=== PATIENT | male | born 1955 | race Caucasian/White ===

== ENCOUNTER 2023-10-19 13:59 | Outpatient (AMB) | payer MEDICARE, OTHER, SELFPAY ==
--- NOTE | 2023-10-19 14:03 | A.OFFVIS_ITS ---
Vital Signs 10/19/23 14:19 Height 5 ft 7 in Weight 169 lb 6 oz BMI 26.5 BP 122/80 Blood Pressure Location Lt brachial Position Sitting Pulse 74 Pulse Source Pulse Oximeter Pulse Oximetry (%) 99 Oxygen Delivery Method Room Air Intake Visit Reasons: ENP: Worsening Tremor - Confirmed Intake Note: Patient presents for worsening tremors. Allergies haloperidol [From Haldol] Allergy (Verified 10/19/23 14:11) Unknown tizanidine Allergy (Verified 10/19/23 14:11) Unknown Medication List - Last Reconciled 10/19/23 by Isabela Myers MD acetaminophen 1,000 mg PO Q6H PRN allopurinol 100 mg PO DAILY clonazepam mg PO ferrous sulfate (Iron (ferrous sulfate)) 325 mg PO QAM levothyroxine mcg PO mycophenolate sodium 360 mg PO BID omega-3 fatty acids 1,000 mg PO DAILY pantoprazole 40 mg PO BID quetiapine 100 mg PO BEDTIME tacrolimus XR (Envarsus XR) 2 mg PO DAILY tamsulosin 0.8 mg PO DAILY HPI Comments Details: 68y/o left handed male comes for evaluation of tremors . He started noticing tremors in his left hand about 6 mths ago . it was mild and intermittent initially but its more now. The tremors is mostly at rest. No difficulty with left hand coordination Handwriting is smaller No trouble with using utensils, eating, dressing. He also has lumbar spinal stenosis and had surgery 1 year ago . He has persistent back pain and is getting cortisone shots. He has trouble getting up form chair balance and also feels he shuffles. He feels his left foot is stuck No falls but had some near [place]. His voice is softer. He has mild memory issues He is a light sleeper. He has anxiety and takes clonazepam . He has constipation. 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 He has h/o Bipolar disorder and has been exposed to risperdal, haldol for few years and now is on quetiapine. [facility] Medical History (Updated 10/19/23 @ 14:47 by Isabela Myers MD) Parkinson's disease without dyskinesia Subacromial bursitis of left shoulder joint Hypothyroidism Hyperlipidemia History of testicular cancer Gout GERD (gastroesophageal reflux disease) CKD (chronic kidney disease), stage IV BPH (benign prostatic hyperplasia) Bipolar disorder Surgical History Kidney transplanted Previous back surgery Living unrelated donor renal transplant History of orchiectomy H/O esophagogastroduodenoscopy H/O colonoscopy Family History Father History of heart attack Mother Suicide Sister Bipolar 2 disorder Physical Exam Vital Signs: Last Vital Signs Pulse 74 10/19/23 14:19 BP 122/80 10/19/23 14:19 Pulse Ox 99 10/19/23 14:19 Oxygen Delivery Method Room Air 10/19/23 14:19 BMI result Body Mass Index 26.5 Const General: cooperative, healthy appearing and no acute distress Nutritional Appearance: average body habitus Orientation/consciousness: patient oriented x3 HEENT Head: Yes normal to inspection Neck Other: mild antecollis and restricted range of motion Neuro Other: Mild decreased blink and facial expression No lower lip tremors, tongue tremors , slow tongue movements Voice- hypophonia dysprosody Left UE high amplitude rest tremors FineFinger movements - severely decreased james l>R Alternating hand movements - decreased james L>R Hand movements - decreased james L>R Foot taps- decreased james L>R No cog wheel rigidity gait - stooped, mild slowness and decreased arm swing L>R cogwheel rigidity General: patient oriented x3 and no focal motor deficits Cranial nerves: Yes CN's II-XII intact bilaterally, Yes Bilaterally intact EOM present, Yes Normal facial strength present and Yes Midline tongue present Cognition (Neuro): normal cognition Motor exam (neuro): 5/5 motor strength present throughout Deep tendon reflexes (DTR's): Right triceps reflex intensity grade: 2+, Left tri ceps reflex intensity grade: 2+, Rt Biceps (C5, C6): 2+, Left biceps reflex intensity grade: 2+, Right brachioradialis reflex intensity grade: 2+, Left brachioradialis reflex intensity grade: 2+, Right patellar reflex intensity grade: 2+ and Left patellar reflex intensity grade: 2+ Coordination: [id number] test normal and rapid alternating movements of the distal upper extremity normal Assessment & Plan Assessment & Plan (1) Parkinson's disease without dyskinesia: Comment: ? neuroleptic induced Code(s): G20.A1 - Parkinson's disease without dyskinesia, without mention of fluctuations Category: Medical Plan MRI report from [facility] I will do a LAI scan to assess if it is a neuroleptic related parkinsonism will trial on carbidopa/levodopa 25/100 tid after discussing with his hydraulic technician ( patient larkin dlithium induced nephrotoxicity) PT for gait and balance Orders: Orders DaTscan Today G20.A1 - Parkinson's disease without dyskinesia, without mention of fluctuations, N18.4 - Chronic kidney disease, stage 4 (severe) PT Evaluation and Treatment Today G20.A1 - Parkinson's disease without dyskinesia, without mention of fluctuations Medications: New carbidopa-levodopa 25-100 mg 1 tab PO TID 90 tabs 6RF Coding Level of Care Code New Pt Level 4 (05251) Complex EM visit Add On G2211 Diagnoses Parkinson's disease without dyskinesia G20.A1
[2023-10-19 14:19] VITALS: BP 122/80; PULSE 74; O2SAT 99; BMI 26.5
== END 2023-10-19 15:00 | disposition home or self-care (01) ==
PROVIDERS: PCP Family Medicine; Visit Provider Psychiatry & Neurology Neurology
DX: G20.A1 Parkinson's disease without dyskinesia, without mention of fluctuations (principal)
CPT/HCPCS: 99204; G2211

== ENCOUNTER → 2023-10-19 13:59 | Outpatient (BNVA) | payer MEDICARE, OTHER, SELFPAY | PROVIDERS: PCP Family Medicine; Visit Provider Psychiatry & Neurology Neurology | DX: G20.A1 Parkinson's disease without dyskinesia, without mention of fluctuations (principal) | CPT/HCPCS: 99202 ==

== ENCOUNTER 2024-03-09 09:18 | Outpatient (AMB) | payer MEDICARE, OTHER, SELFPAY ==
[2024-03-09 09:19] VITALS: BP 138/78; BMI 26.5
--- NOTE | 2024-03-09 09:19 | A.OFFVIS_ITS ---
Vital Signs 03/09/24 09:19 Height 5 ft 7 in Weight 169 lb BMI 26.5 BP 138/78 Blood Pressure Location Rt brachial Position Sitting Intake Visit Reasons: follow up Worsening Tremor Intake Note: Patient presents for worsening tremor Allergies haloperidol [From Haldol] Allergy (Verified 03/09/24 09:21) Unknown tizanidine Allergy (Verified 03/09/24 09:21) Unknown Medication List - Last Reconciled 03/09/24 by Isabela Myers MD acetaminophen 1,000 mg PO Q6H PRN allopurinol 100 mg PO DAILY carbidopa-levodopa 25-100 mg 1 tab PO TID clonazepam mg PO ferrous sulfate (Iron (ferrous sulfate)) 325 mg PO QAM levothyroxine mcg PO mycophenolate sodium 360 mg PO BID omega-3 fatty acids 1,000 mg PO DAILY pantoprazole 40 mg PO BID tacrolimus XR (Envarsus XR) 2 mg PO DAILY tamsulosin 0.8 mg PO DAILY HPI Comments Details: 68y/o left handed male comes for follow up of parkinsonism. He was started on carbidopa/levodopa tid and he thinks it is helping his tremors.He reports falls - 3-4 in last weeks at night when it is dark. when he wake sup to use the bathroom, he feels dizzy and loses balance . But he also says the room is dark and he rushes. Once he started slowing down he stopped falling. He is on midodrine 3times a day . His seroquel at bedtime was stopped and now he is on depakote . he could not do the LAI scan due to kidney transplant. H/o from initial history-He started noticing tremors in his left hand about 6 mths ago . it was mild and intermittent initially but its more now. The tremors is mostly at rest. No difficulty with left hand coordination Handwriting is smaller No trouble with using utensils, eating, dressing. He also has lumbar spinal stenosis and had surgery 1 year ago . He has persistent back pain and is getting cortisone shots. He has trouble getting up form chair balance and also feels he shuffles. He feels his left foot is stuck No falls but had some near [place]. His voice is softer. He has mild memory issues He is a light sleeper. He has anxiety and takes clonazepam . He has constipation. 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 He has h/o Bipolar disorder and has been exposed to risperdal, haldol for few years and now is on quetiapine. [facility] Medical History (Updated 03/09/24 @ 09:41 by Isabela Myers MD) Parkinsonism Parkinson's disease without dyskinesia Subacromial bursitis of left shoulder joint Hypothyroidism Hyperlipidemia History of testicular cancer Gout GERD (gastroesophageal reflux disease) CKD (chronic kidney disease), stage IV BPH (benign prostatic hyperplasia) Bipolar disorder Surgical History Kidney transplanted Previous back surgery Living unrelated donor renal transplant History of orchiectomy H/O esophagogastroduodenoscopy H/O colonoscopy Family History Father History of heart attack Mother Suicide Sister Bipolar 2 disorder Social History (Updated 03/09/24 @ 09:22 by EVA Mcdonald) Alcohol intake: never Patient Tobacco Use Status: Never used Tobacco Physical Exam Vital Signs: Last Vital Signs BP 138/78 03/09/24 09:19 BMI result Body Mass Index 26.5 Const General: cooperative, healthy appearing and no acute distress Nutritional Appearance: average body habitus Orientation/consciousness: patient oriented x3 HEENT Head: Yes normal to inspection Neck Other: mild antecollis and restricted range of motion Neuro Other: normal blink and facial expression No lower lip tremors, tongue tremors , slow tongue movements Voice- good no tremors FineFinger movements - normal Alternating hand movements - normal Hand movements -normal Foot taps- decreased normal No cog wheel rigidity gait - mild slowness and decreased arm swing L>R General: patient oriented x3 and no focal motor deficits Cranial nerves: Yes CN's II-XII intact bilaterally, Yes Bilaterally intact EOM present, Yes Normal facial strength present, Yes Midline tongue present and Yes Ability to bilaterally elevate shoulders present Cognition (Neuro): normal cognition Motor exam (neuro): 5/5 motor strength present throughout Assessment & Plan Assessment & Plan (1) Parkinsonism: Code(s): G20.C - Parkinsonism, unspecified Category: Medical Qualifiers: Parkinsonism type: secondary Parkinsonism Secondary Parkinsonism type: neuroleptic-induced Qualified Code(s): G21.11 - Neuroleptic induced parkinsonism; T43.505A - Adverse effect of unspecified antipsychotics and neuroleptics, initial encounter Plan MRI report from [facility] LAI scan to assess if it is a neuroleptic related parkinsonism- bu cancelled due to his kidney disease He is interested in SYn-One test ( skin biopsy ) - I will check with his insurance Contine carbidopa/levodopa 25/100 tid after discussing with his air route traffic controller ( patient had lithium induced nephrotoxicity) continue exercise Medications: New divalproex ER (Depakote ER) 250 mg PO BID Coding Level of Care Code Est Pt Level 4 (95773) Complex EM visit Add On G2211 Diagnoses Neuroleptic-induced parkinsonism G21.11; T43.505A Parkinsonism type: secondary Parkinsonism Secondary Parkinsonism type: neuroleptic-induced
== END 2024-03-09 09:51 | disposition home or self-care (01) ==
PROVIDERS: PCP Family Medicine; Visit Provider Psychiatry & Neurology Neurology
DX: G21.11 Neuroleptic induced parkinsonism (principal); T43.505A Adverse effect of unspecified antipsychotics and neuroleptics, initial encounter
CPT/HCPCS: 99214; G2211

== ENCOUNTER → 2024-03-09 09:18 | Outpatient (BNVA) | payer MEDICARE, SELFPAY | PROVIDERS: PCP Family Medicine; Visit Provider Psychiatry & Neurology Neurology | DX: G21.11 Neuroleptic induced parkinsonism (principal); T43.505A Adverse effect of unspecified antipsychotics and neuroleptics, initial encounter; X58.XXXA Exposure to other specified factors, initial encounter | CPT/HCPCS: 99212 ==

== ENCOUNTER 2024-10-05 09:24 | Outpatient (AMB) | payer MEDICARE, SELFPAY ==
--- NOTE | 2024-10-05 09:27 | MHC.OFFVIS ---
Vital Signs 10/05/24 09:37 Height 5 ft 7 in Weight 142 lb BMI 22.2 BP 128/72 Blood Pressure Location Rt brachial Position Sitting Intake Visit Reasons: follow up Worsening Tremor Intake Note: Patient presents for follow up worsening tremors Allergies haloperidol [From Haldol] Allergy (Verified 10/05/24 09:38) Unknown tizanidine Allergy (Verified 10/05/24 09:38) Unknown HPI Comments Details: 69y/o left handed male comes for follow up of parkinsonism. He is on carbidopa/levodopa 1/2 tab tid and he thinks it is helping his tremors.He was started on fudrocortisone 0.1mg qam has helped his postural hypotension and dizziness He is eating less and has constipation . He is on miralax and is helping him. No falls since he started floudrocortisone. He is on midodrine 10 mg 3times a day . His seroquel at bedtime was stopped and now he is on depakote . he could not do the LAI scan due to kidney transplant. H/o from initial history-He started noticing tremors in his left hand about 6 mths ago . it was mild and intermittent initially but its more now. The tremors is mostly at rest. No difficulty with left hand coordination Handwriting is smaller No trouble with using utensils, eating, dressing. He also has lumbar spinal stenosis and had surgery 1 year ago . He has persistent back pain and is getting cortisone shots. He has trouble getting up form chair balance and also feels he shuffles. He feels his left foot is stuck No falls but had some [place]. His voice is softer. He has mild memory issues He is a light sleeper. He has anxiety and takes clonazepam . He has constipation. 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 He has h/o Bipolar disorder and has been exposed to risperdal, haldol for few years and now is on quetiapine. [facility] Medical History Parkinsonism Parkinson's disease without dyskinesia Subacromial bursitis of left shoulder joint Hypothyroidism Hyperlipidemia History of testicular cancer Gout GERD (gastroesophageal reflux disease) CKD (chronic kidney disease), stage IV BPH (benign prostatic hyperplasia) Bipolar disorder Surgical History Kidney transplanted Previous back surgery Living unrelated donor renal transplant History of orchiectomy H/O esophagogastroduodenoscopy H/O colonoscopy Family History Father History of heart attack Mother Suicide Sister Bipolar 2 disorder Social History Alcohol intake: never Patient Tobacco Use Status: Never used Tobacco Physical Exam Vital Signs: Last Vital Signs BP 128/72 10/05/24 09:37 BMI result Body Mass Index 22.2 Const General: cooperative, healthy appearing and no acute distress Nutritional Appearance: average body habitus Orientation/consciousness: patient oriented x3 HEENT Head: Yes normal to inspection Neck Other: mild antecollis and restricted range of motion Neuro Other: normal blink and facial expression No lower lip tremors, tongue tremors , slow tongue movements Voice- good left hand rest remors FineFinger movements - normal Alternating hand movements - normal Hand movements -normal Foot taps- decreased normal No cog wheel rigidity gait - mild slowness and decreased arm swing L>R General: patient oriented x3 and no focal motor deficits Cranial nerves: Yes CN's II-XII intact bilaterally, Yes Bilaterally intact EOM present, Yes Normal facial strength present, Yes Midline tongue present and Yes Ability to bilaterally elevate shoulders present Cognition (Neuro): normal cognition Motor exam (neuro): 5/5 motor strength present throughout Assessment & Plan Assessment & Plan (1) Parkinsonism: Code(s): G20.C - Parkinsonism, unspecified Category: Medical Qualifiers: Parkinsonism type: secondary Parkinsonism Secondary Parkinsonism type: neuroleptic-induced Qualified Code(s): G21.11 - Neuroleptic induced parkinsonism; T43.505A - Adverse effect of unspecified antipsychotics and neuroleptics, initial encounter Plan Increase fluid intake continue carbidopa/levodopa 25/100 1 /2 tab tid Midodrine 10mg tod fludrocortisone 0.1mg qam LAI scan to assess if it is a neuroleptic related parkinsonism- but cancelled due to his kidney disease He is interested in SYn-One test ( skin biopsy ) - I will check with his insurance Coding Level of Care Code Est Pt Level 4 (52443) Complex EM visit Add On G2211 Diagnoses Neuroleptic-induced parkinsonism G21.11; T43.505A Parkinsonism type: secondary Parkinsonism Secondary Parkinsonism type: neuroleptic-induced
[2024-10-05 09:37] VITALS: BP 128/72; BMI 22.2
--- OUTSIDE RECORDS SUMMARY | 2024-10-05 10:02 | XMS_ITS ---
Author Organization [facility] Address [address] [place] [address] Care Team Providers Care Crown Assembly Machine Operator Name Role Phone Jeffry Gee MD Primary Care Provider Erika Matute Unavailable [phone] Allergies Allergen (clinical drug ingredient) Drug/Non Drug Allergy documented on EMR Reaction Allergy Type Onset Date Status Seasonale Unknown Drug Allergy Active REASON FOR VISIT Painful nail(s) aggrevated by shoes causing difficulty standing/walking, Painful Toe(s) Medications Medication SIG (Take, Route, Frequency, Duration) Notes Start Date End Date Status Allopurinol 100 MG 1 tablet Orally Once a day for 30 day(s) Active Tacrolimus ER 1 MG as directed Orally Active Midodrine HCl 5 MG Oral for 30 Days Active Carbidopa-Levodopa 25-100 MG Oral for 30 Days Active Levothyroxine Sodium 100 MCG 1 tablet in the morning on an empty stomach Orally Once a day for 30 day(s) Active Mycophenolate Sodium 180 MG 2 tablets Orally Twice a day Active Nicotinamide Active Pantoprazole Sodium 40 MG 1 tablet Orall y Once a day Active Tamsulosin HCl 0.4 MG 1 capsule Orally O nce a day Active Depakote 250 MG 1 tablet Orally Twic e a day Active clonazePAM 0.5 MG Oral for 30 Days Active Iron (Ferrous Sulfate) 325 (65 Fe) MG 1 tablet Orally Twice a day Not-Taking Spironolactone 25 MG 1 tablet Orally Not-Taking [place] 3 1000 MG 1 capsule Orally Onc e a day Not-Taking SEROquel 100 MG 1 tablet at bedtime Orally Once a day Not-Taking Social History Tobacco Use: Social History Observation Description Date Details (start date - stop date) Never Smoker NA - NA Tobacco use other than smoking: Question Answer Notes Are you an other tobacco user? No Tobacco Control (Standard) Question Answer Notes Tobacco use: Nonsmoker Additional Findings: Tobacco non-user Current no nsmoker AUDIT-C (Standard) Question Answer Notes Did you have a drink containing alcohol in the p ast year? No Points 0 Interpretation Negative Vital Signs Height 5ft7in in 08/16/2024 Weight 170 lbs 08/16/2024 BMI 26.62 kg/m2 08/16/2024 Blood pressure systolic 130 mm Hg 08/17/19 25 Blood pressure diastolic 70 mm Hg 025 Encounters Encounter Location Date Provider Diagnosis [facility] [address] [address] 08/16/2024 Erika Dumas Tinea unguium B35.1 ; Contusion of lesser toe of left foot without damage to nail, initial encounter S90.122A ; Pain in right toe(s) M79.674 and Pain in left toe(s) M79.675 Assessments Encounter Date Diagnosis (ICD Code) Assessment Notes Treatment Notes Treatment Clinical Notes Section Notes 08/16/2024 Tinea unguium (ICD-10 - B35.1) 08/16/2024 Contusion of lesser toe of left foot without damage to nail, initial encounter (ICD-10 - S90.122A) 08/16/2024 Pain in right toe(s) (ICD-10 - M79.674) 08/16/2024 Pain in left toe(s) (ICD-10 - M79.675) Plan Of Treatment Pending Test Test Name Order Date X ray : Foot, left 3V 08/16/2024 Next Appt Details Follow Up: 2 Months, Reason: Provider Name:Erika car, 10/24/2024 03:30:00 PM, [address] [place], [address], Procedure Notes * Category Sub-Category Detail Notes Debride Nail 6-10 Nail debridement Due to the cl inical pathology outlined in the exam findings, performance of this nail treatment is medically necessary as its management by an unskilled/untrained nonprofessional would put this patients foot and overall health at risk. Therefore, debridement to affected nail(s), as described in exam ( TA, T1, T2, T3, T4, T5, T6, T7, T8, T9, ), was performed exclusively by the physician of record to reduce/remove overall nail length, girth, thickness, subungual debris, and necrotic tissue, by manual and/or electrical means through the use of a nail nipper and/or dremel-type profile grinder, to a more viable healthy nail plate or bed tissue 6-10 nails in total. Silver nitrate was used for any petechial bleeding as necessary. Definitive antifungal treatment options, both pharmaceutical and surgical, have been reviewed and discussed with the patient. The patient solely prefers the use of intermittent/as needed professional debridement services for their nail condition and understands the need for additional periodic treatments to maintain effectiveness in symptomatic relief - 01527 Progress Notes * Jose GREEN ADOB:05/1955 (69 yo M)Acc No.[id number]:08/16/2024 Progress Note Patient:?Jose GREEN Provider:?Erika Dumas DPM :1955???Age:69 Y???Sex:Male Camacho e:08/16/2024 Address:[address] [place], [place] [id number] Pcp:Jeffry Gee MD Subjective: * Chief Complaints: * ???Painful nail(s) aggrevate d by shoes causing difficulty standing/walkingPainful Toe(s) * HPI: ???Painful Nails:?Pt States Last PCP Visit:?Date:?04/23/2024 ???Toe pain:?Nature:?aching, bruising, discoloration, swelling, tenderness, throbbing.?Location:?Left foot , Great toe.?Duration:?since DOI ( a week, ).?Onset/Cause:?states traumatic ( jammed toe, hyper flexing it ).?Aggravated by:?any pressure , shoes , standing/walking.?Treatments:?rest/alter normal daily activity, ice.? * ROS:?General/Constitutional:?Nausea?denies.?Vomiting?denies.?Hunger Thirst?denies.?Loss appetite?denies.?Chills?denies.?Fatigue?denies.?Fever?denies.?Night Sweats?denies.?Unexplained weight loss?denies.?Unexplained weight gain?denies.?HEENTM:?Dentures?denies.?Dizziness?denies.?Glasses/contacts?denies.?Retinopathy?de nies.?Blurred/double vision?denies.?TMJ?denies.?Discharge/drainage?denies.?Implants?denies.?Sore throat?denies.?Dental implants?denies.?Hard of hearing ?denies.?Difficulty chewing/swallowing/speaking?denies.?Nose bleeds?denies.?Sore mouth?denies.?Respiratory:?On Oxygen?denies.?Pneumonia/pleurisy?denies.?Bronchitis?denies.?Emphysema?denies.?C oughing?denies.?Cough blood?denies.?Shortness of breath?denies.?Wheezing?denies, denies.?Cardiovascular:?Pacemaker?denies.?MVP?denies.?WPW?denies.?CHF?denies.?Heart attack?denies.?Septal defect?denies.?Rapid beat?denies.?Chest pain ?denies.?Atrial Fib.?denies.?Murmur/Palpitations?denies.?Gastrointestinal:?Hemorrhoids?denies.?Stomach/Abdominal pain?denies.?Dark blood stool?denies.?Irritable bowel ?denies.?Constipation?denies.?Diarrhea?denies.?Hematology:?Swelling?admits, admits.?Clots?Denies.?Varicose Veins?denies.?Bruising?denies.?Bleeding problem?denies.?Genitourinary:?Blood urine?denies.?Frequent/Painfu/urination/bladder control?denies.?Kidney stones?denies.?Infection (UTI)?denies.?Nephropathy?denies.?sex trans dis (STD)?denies.?Prostate?denies.?Musculoskeletal:?Hammertoes?denies.?Bunions?denies.?Back Pain?denies.?Muscle Cramps/ Resting?denies.?Muscle cramps / walking?denies.?Generalized aches and pains?denies.?Weakness?denies.?Integ.:?[place]?denies.?Scars?denies.?Corns/calluses?denies.?Ingrown nails?denies.?Painful nails?admits.?Open Sores?denies.?Rashes?denies.?Neurologic:?Difficulty sleeping?denies.?Brain disorder?denies.?Numbness?admits.?Balance trouble?denies.?Confusion?denies.?Fainting/blackouts?admits.?Tingling?admits.?Tr emors?denies, denies.? * Medical History:? * Surgical History:?testicular , cancer tumor removal 1984kidney transplant ack surgery 05/2022 * Hospitalization/Major Diagno stic Procedure:?[facility] - kidney transplant - back surgery 05/2022 * Family History:?Mother: dece ased, stroke, heart attack.?Father: , stroke.? * Social History:?Tobacco Use:?Tobacco use other than smoking?Are you an other tobacco user??No ?Tobacco Control (Standard)?Tobacco use:?Nonsmoker ?Additional Findings: Tobacco non-user?Current nonsmoker ???Drugs/Alcohol:?Drugs?Have you used drugs other than those for medical reasons in the past 12 months??No ???Drug/Alcohol:?AUDIT-C (Standard)?Did you have a drink containing alcohol in the past year??No ?Points?0 ?Interpretation?Negative * Medications:?TakingDepakote 250 MG Tablet Delayed Release 1 tablet Orally Twice a day Tamsulosin HCl 0.4 MG Capsule 1 capsule Orally Once a day Pantoprazole Sodium 40 MG Tablet Delayed Release 1 tablet Orally Once a day Nicotinamide Mycophenolate Sodium 180 MG Tablet Delayed Release 2 tablets Orally Twice a day Tacrolimus ER 1 MG Tablet Extended Release 24 Hour as directed Orally Allopurinol 100 MG Tablet 1 tablet Orally Once a day Levothyroxine Sodium 100 MCG Tablet 1 tablet in the morning on an empty stomach Orally Once a day Carbidopa-Levodopa 25-100 MG Tablet Oral Midodrine HCl 5 MG Tablet Oral clonazePAM 0.5 MG Tablet Oral Taking Depakote 250 MG Tablet Delayed Release 1 tablet Orally Twice a day Taking Tamsulosin HCl 0.4 MG Capsule 1 capsule Orally Once a day Taking Pantoprazole Sodium 40 MG Tablet Delayed Release 1 tablet Orally Once a day Taking Nicotinamide Taking Mycophenolate Sodium 180 MG Tablet Delayed Release 2 tablets Orally Twice a day Taking Tacrolimus ER 1 MG Tablet Extended Release 24 Hour as directed Orally Taking Allopurinol 100 MG Tablet 1 tablet Orally Once a day Taking Levothyroxine Sodium 100 MCG Tablet 1 tablet in the morning on an empty stomach Orally Once a day Taking Carbidopa-Levodopa 25-100 MG Tablet Oral Taking Midodrine HCl 5 MG Tablet Oral Taking clonazePAM 0.5 MG Tablet Oral Not-Taking/PRNSEROquel 100 MG Tablet 1 tablet at bedtime Orally Once a day [place] 3 1000 MG Capsule 1 capsule Orally Once a day Spironolactone 25 MG Tablet 1 tablet Orally Iron (Ferrous Sulfate) 325 (65 Fe) MG Tablet 1 tablet Orally Twice a day Medication List reviewed and reconciled with the patientNot-Taking/PRN SEROquel 100 MG Tablet 1 tablet at bedtime Orally Once a day Not-Taking/PRN [place] 3 1000 MG Capsule 1 capsule Orally Once a day Not-Taking/PRN Spironolactone 25 MG Tablet 1 tablet Orally Not-Taking/PRN Iron (Ferrous Sulfate) 325 (65 Fe) MG Tablet 1 tablet Orally Twice a day Medication List reviewed and reconciled with the patient * Allergies:?Seasonaleyes[Nick rgies Verified] Objective: * Vitals:?Ht:5ft7in, Wt:170, B NV:26.62, Shoe size:9.5, BP:130/70mm Hg, Ht-cm: 170.18 cm, Wt-k.11 kg. * Examination: ???Nails: ?NAILS are:?Elongated, overgrown, dystrophic, lytic, greater than 3mm thick, discolored and friable with crumbly malodorous subungual debris, with pain on palpation , TA, T1, T2, T3, T4, T5, T6, T7, T8, T9 ,Nail plate intact ( TA ).?Orthopedic: ?DIGITAL DEFORMITIES:? Reveals pain to palpation, swelling, ecchymosis, and no pain with? ROM Left 1st MPJ.?X-Rays - IMAGING REPORT: ?Clinical Indication(s):? Evaluate for Fracture.?Views:?3 views of Foot, AP, LO, LAT, , LEFTTaken by trainedPodiatric Inhalation Therapy Teacher (EF ).?Findings:?normal bone density consistent for patients age and sex, increase in soft tissue contour and density at the symptomatic site.?Fracture:?Negative fractures identified.?General Examination: ?GENERAL APPEARANCE:?Reveals a pleasant, alert, well nourished, well- developed, well hydrated individual, who demonstrates proper attention to hygiene/body habitus, and is in no acute distress, Pt serves as own historian for office visit today.?ORIENTED:?person, place, and time.?Vascular: ?DP PULSES (B):?3/4, B/L.?PT PULSES (B):?3/4, B/L.?CAPILLARY FILL TIME:?immediate, all digits, B/L.? Assessment: * Assessment: 1.?Tinea unguium - B35.1???2 .?Contusion of lesser toe of left foot without damage to nail, initial encounter - S90.122A (Primary)???Specify :Acute problem, Uncomplicated (3)???3.?Pain in right toe(s) - M79.674???4.?Pain in left toe(s) - M79.675??? Plan: * Treatment: * Procedures:?Debride Nail 6-10:?Nail debridement?Due to the clinical pathology outlined in the exam findings, performance of this nail treatment is medically necessary as its management by an unskilled/untrained nonprofessional would put this patients foot and overall health at risk. Therefore, debridement to affected nail(s), as described in exam ( TA, T1, T2, T3, T4, T5, T6, T7, T8, T9, ), was performed exclusively by the physician of record to reduce/remove overall nail length, girth, thickness, subungual debris, and necrotic tissue, by manual and/or electrical means through the use of a nail nipper and/or dremel-type profile grinder, to a more viable healthy nail plate or bed tissue 6- 10 nails in total. Silver nitrate was used for any petechial bleeding as necessary. Definitive antifungal treatment options, both pharmaceutical and surgical, have been reviewed and discussed with the patient. The patient solely prefers the use of intermittent/as needed professional debridement services for their nail condition and understands the need for additional periodic treatments to maintain effectiveness in symptomatic relief - [address].? * Procedure Codes:?59272 DEBRI DE NAIL, 6 OR MORE, Modifiers: XS 69911 X-RAY EXAM OF LEFT FOOT 3V, Modifiers: 26 , LT * Preventive Medicine:? ??Counseling:?Discussion:?-13: Office or other outpatient visit for the evaluation and management of an established patient, which required a medically appropriate history and/or examination and LOW level of DECISION MAKING for: 1 STABLE ACUTE UNCOMPLICATED PROBLEM, 2 OR MORE MINOR PROBLEMS, OR 1 STABLE CHRONIC PROBLEM, THAT POSE(S) A LOW RISK FOR MORBIDITY/MORTALITY. The visit on the day of the encounter encompassed interpreting the data and educating the patient as to the nature of their condition, treatment options available according to their individual PMH, meds, allergies, and overall health/living conditions, as well as any potential risks or complications that may occur from a failure to adhere to, and participate in, the recommended course of therapy. The discussion included a complete verbal, and/or written explanation of the examination results, any x-rays taken, the proposed diagnosis, and outline of the treatment plan. A schedule for future care needs was also explained. The patient verbalized an understanding of the instructions at this time and agreed to be an active participant in their treatment. If the patient should think of any questions or concerns after the visit, I have encouraged the patient to call the office.?Digital Treatment:?I explained to the patient the risks/benefits of all the different treatment options for their pain including: No treatment at all, Rest, Ice, New/supportive/wider/deeper Shoegear, Digital Padding/Strapping/Taping/Bracing/Gel protective sleeves, Foot/Ankle AFO Bracing, Stretching exercises, Deep Tissue Massage, Arch support/shoe inserts with splay metatarsal padding, and Custom orthoses. I insisted that any digital devices be removed daily and not worn overnight for safety. The patient is to carefully examine the toes daily for any skin irritation while using any splinting or padding device. The advantages and disadvantages of each option were discussed and the patients questions re: shoegear, padding, custom vs prefabricated inserts, activity level, and consistency in home treatment regimens for optimal success were answered to their verbally confirmed satisfaction.?P.R.I.C.E.:?The patient was counseled on the use of P.R.I.C.E. and NSAIDS (if well tolerated) to aid in the recovery from their painful condition , Recommended Topical analgesics including Aspercream/Biofreeze/Voltaren gel as directed.?X-rays:?Discussed and reviewed the X-rays with the patient. We discussed how the findings relate to the patients symptoms/complaints. Answered any and all questions..? ??Screening/Special Tests:?Fall Risk?Screening:?No falls in the past year ?FALLS: Screening for Future Fall Risk?Have you had any falls with injury in the past year??No * Follow Up:?2 Months * Images: * Sign off status: Completed true * Provider:?VERNON FranceM Date:? Generated for Barbie rizvi/Sara/Khari on:?10/05/2024 10:02 AM EDT History and Physical Notes * HPI (History of Present Illness) Category Sub-Category Detail Notes Category Not es Toe pain Nature: aching, bruising , discoloration, swelling, tenderness, throbbing Location: Left foot , Great to e Duration: since DOI ( a week, ) Onset/Cause: states traumatic ( j ammed toe, hyper flexing it ) Aggravated by: any pressure , shoes , standing/walking Treatments: rest/alter normal da be activity, ice Painful Nails Pt States Last PCP Visit: Date:: 04/23/2024 Examination Category Sub-Category Detail Notes Category Not es Orthopedic DIGITAL DEFORMITIES: Reveals alberto n to palpation, swelling, ecchymosis, and no pain with ROM Left 1st MPJ General Examination GENERAL APPEARANCE: Reveals a pleasant, alert, well nourished, well-developed, well hydrated individual, who demonstrates proper attention to hygiene/body habitus, and is in no acute distress, Pt serves as own historian for office visit today ORIENTED: person, place, and t juice Vascular DP PULSES (B): 3/4, B/L PT PULSES (B): 3/4, B/L CAPILLARY FILL TIME: immediate, all digi ts, B/L Nails NAILS are: Elongated, overg rown, dystrophic, lytic, greater than 3mm thick, discolored and friable with crumbly malodorous subungual debris, with pain on palpation , TA, T1, T2, T3, T4, T5, T6, T7, T8, T9 , Nail plate intact ( TA ) X-Rays - IMAGING REPORT Findings: normal b one density consistent for patients age and sex, increase in soft tissue contour and density at the symptomatic site Fracture: Negative fractures i dentified Views: 3 views of Foot, AP, LO, LAT, , LEFT Taken by trained Podiatric Inhalation Therapy Teacher ( EF ) Clinical Indication(s): Evaluate for Fra cture
--- OUTSIDE RECORDS SUMMARY | 2024-10-05 10:02 | XMS_ITS | Clinical Summary ---
Author Organization [facility] ity Address [address] [place] [address] Care Team Providers Care Pcb Design Engineer Name Role Phone Skip Nathan MD Primary Care Provider [phone]- [phone] Social History Tobacco Use Types Packs/Day Years Used Date Smoking Tobacco: Never Assessed Sex and Gender Information Value Date Recorded Sex Assigned at Not on file Legal Sex Male 2:13 PM EST Gender Identity Not on file Sexual Orientation Not on file Plan of Treatment Health Maintenance Due Date Last Done Comments DTaP,Tdap,and Td Vaccines (1 - Tdap) 1972 Pneumococcal Vaccine: 50+ Ye ars (1 of 1 - PCV) 2003 Zoster Vaccines (1 of 2) 2003 Abdominal Aortic Aneurysm (A AA) Screen 04/22/2022 Cholesterol Screening (Lipid Panel) 04/22/2022 Colorectal Cancer Screening: Colonoscopy 04/22/2022 Depression Screening 04/22/2022 Falls Risk Assessment 04/22/2022 Hepatitis C Screening 04/22/2022 Social Influencers of Health Screening 04/22/2022 COVID-19 Vaccine ( - 2023-2 5 season) 2024 Influenza Vaccine (Season Ended) 2025 RSV Immunization Adult Patie nts (1 - 1-dose 75+ series) 2028 HIB Vaccines Aged Out No longer eligi ble based on patient's age to complete this topic HPV Vaccines Aged Out No longer eligi ble based on patient's age to complete this topic Hepatitis A Vaccines Aged Out No long er eligible based on patient's age to complete this topic Hepatitis B Vaccines Aged Out No long er eligible based on patient's age to complete this topic IPV Vaccines Aged Out No longer eligi ble based on patient's age to complete this topic MMR Vaccines Aged Out No longer eligi ble based on patient's age to complete this topic Meningococcal ACWY Vaccine Aged Out N o longer eligible based on patient's age to complete this topic Meningococcal B Vaccine Aged Out No l onger eligible based on patient's age to complete this topic RSV Immunization Patients Un hanh 20 months Aged Out No longer eligible b ased on patient's age to complete this topic Varicella Vaccines Aged Out No longer eligible based on patient's age to complete this topic Advance Directives Documents on File Type Date Recorded Patient Barrel Polisher Expl anation Health Care Decision (hx) 05/28/2021 AD MON[place]ÑO DIRECTIVE Health Care Decision (hx) 05/28/2021 AD MONTAÑO DIRECTIVE Health Care Decision (hx) 05/28/2021 AD MONTAÑO DIRECTIVE Health Care Decision (hx) 05/28/2021 AD MONTAÑO DIRECTIVE Care Teams Pcb Design Engineer Relationship Specialty Start Date End Date Skip Nathan MD [address] [place] [address] PCP - General Pediatrics 01/22/15
--- OUTSIDE RECORDS SUMMARY | 2024-10-05 10:02 | XMS_ITS | Encounter Summary ---
Author Organization [facility], Address [address] [address] Phone Care Team Providers Care Coding Compliance Auditor Name Role Phone Jeffry Gee MD Primary Care Provider [phone]- [phone] Reason for Visit * Reason Onset Date Comments Med Refill 10/03/2024 Encounter Details Date Type Department Care Team (Late st Contact Info) Description 10/03/2024 Refill [facility] [address] [place] [address] Heath Samuel MD [address] [place] [address] Dr. [place] [address] Social History Tobacco Use Types Packs/Day Years Used Date Smoking Tobacco: Former Cigarettes Q uit: 03/22/1976 Comments:Smoking History Inf o:Unknown Sex and Gender Information Value Date Recorded Sex Assigned at Not on file Legal Sex Male 4:33 PM EST Gender Identity Not on file Sexual Orientation Not on file documented as of this encounter Plan of Treatment Upcoming Encounters Date Type Department Care Team (Late st Contact Info) Description 11/20/2024 1:30 PM EDT Clinical Support [facility] [address] [place] [address] Bertha Quiroga FNP-C [address] [place] [address] [place] [address] documented as of this encounter Visit Diagnoses Not on filedocumented in this encounter Care Teams Coding Compliance Auditor Relationship Specialty Start Date End Date Jeffry Gee MD [address] [place] [address] PCP - General Family Medicine 08/20/21 documented as of this encounter
--- OUTSIDE RECORDS SUMMARY | 2024-10-05 10:02 | XMS_ITS | Encounter Summary ---
Author Organization [facility] Address [address] [place] [address] Phone Care Team Providers Care Credit And Loan Collections Supervisor Name Role Phone Jeffry Gee MD Primary Care Provider [phone]- [phone] Encounter Details Date Type Department Care Team (Late st Contact Info) Description 02/28/2024 Documentation Only [facility], [address] [place] [address] [place], [place] [address] [place] [address] Social History Tobacco Use Types Packs/Day Years [...] Clinical Support [facility] [address] [place] [address] Bertha Quiroga FNP-C [address] [place] [address] documented as of this encounter Visit Diagnoses Not on filedocumented in this encounter Care Teams Credit And Loan Collections Supervisor Relationship Specialty Start Date End Date Jeffry Gee MD [address] [place] [address] PCP - General Family Medicine 08/20/21 documented as of this encounter
--- OUTSIDE RECORDS SUMMARY | 2024-10-05 10:02 | XMS_ITS | Encounter Summary ---
Author Organization [facility] Address [address] [place] [address] Phone Care Team Providers Care Watch Parts Inspector Name Role Phone Jeffry Gee MD Primary Care Provider [phone]- [phone] Encounter Details Date Type Department Care Team (Late st Contact Info) Description 03/09/2024 Documentation Only [facility], [address] [place] [address] [place], [place] [address] [place] [address] Social History Tobacco Use Types [...] Support [facility] [address] [place] [address] Bertha Quiroga FNP-C [address] [place] [address] documented as of this encounter Visit Diagnoses Not on filedocumented in this encounter Care Teams Watch Parts Inspector Relationship Specialty Start Date End Date Jeffry Gee MD [address] [place] [address] PCP - General Family Medicine 08/20/21 documented as of this encounter
--- OUTSIDE RECORDS SUMMARY | 2024-10-05 10:02 | XMS_ITS | Encounter Summary ---
Author Organization [facility], Address [address] [facility] [place] [address] Phone Care Team Providers Care Chief Operating Officer Name Role Phone Jeffry Gee MD Primary Care Provider +1- [phone] Encounter Details Date Type Department Care Team (Late st Contact Info) Description 05/20/2022 Office Communication [facility], [address] [place] [address] Heath Samuel MD [address] [place] [address] [place] [id number] Social History Tobacco Use Types Packs/Day Years [...] Support [facility] [address] [address] Bertha Quiroga FNP-C [address] [address] documented as of this encounter Visit Diagnoses Not on filedocumented in this encounter Care Teams Chief Operating Officer Relationship Specialty Start Date End Date Jeffry Gee MD [address] [place] [address] PCP - General Family Medicine 08/20/21 documented as of this encounter
--- OUTSIDE RECORDS SUMMARY | 2024-10-05 10:02 | XMS_ITS | Encounter Summary ---
Author Organization [facility] Address [address] [place] [address] Phone Care Team Providers Care Radio Technician Name Role Phone Jeffry Gee MD Primary Care Provider +1- [phone] Encounter Details Date Type Department Care Team (Late st Contact Info) Description 02/16/2024 Documentation Only [facility] [place], [address] [place] [address] [place], [place] [address] [place] [address] Social History Tobacco Use Types [...] Support [facility] [address] [place] [address] Bertha Quiroga FNP-C [address] [place] [address] documented as of this encounter Visit Diagnoses Not on filedocumented in this encounter Care Teams Radio Technician Relationship Specialty Start Date End Date Jeffry Gee MD [address] [place] [address] PCP - General Family Medicine 08/20/21 documented as of this encounter
--- OUTSIDE RECORDS SUMMARY | 2024-10-05 10:02 | XMS_ITS | Patient Health Record ---
Author Organization [facility] [place] Address [address] [place] [address] Care Team Providers Care Visual Merchandising Manager Name Role Phone Jeffry Gee MD Primary Care Provider Erika Matute Unavailable [phone] Allergies Allergen (clinical drug ingredient) Drug/Non Drug Allergy documented on EMR Reaction Allergy Type Onset Date Status Seasonale Unknown Drug Allergy Active Reason For Referral No Information Medications Medication SIG (Take, Route, Frequency, Duration) Notes Start Date End Date Status Iron (Ferrous Sulfate) 325 (65 Fe) MG 1 tablet Orally Twice a day Not-Taking Pantoprazole Sodium 40 MG 1 tablet Orall y Once a day Active Spironolactone 25 MG 1 tablet Orally Not-Taking Tamsulosin HCl 0.4 MG 1 capsule Orally O nce a day Active [place] 3 1000 MG 1 capsule Orally Onc e a day Not-Taking Depakote 250 MG 1 tablet Orally Twic e a day Active SEROquel 100 MG 1 tablet at bedtime Orally Once a day Not-Taking Allopurinol 100 MG 1 tablet Orally Once a day for 30 day(s) Active Tacrolimus ER 1 MG as directed Orally Active Mycophenolate Sodium 180 MG 2 tablets Orally Twice a day Active Nicotinamide Active clonazePAM 0.5 MG Oral for 30 Days Active Midodrine HCl 5 MG Oral for 30 Days Active Carbidopa-Levodopa 25-100 MG Oral for 30 Days Active Levothyroxine Sodium 100 MCG 1 tablet in the morning on an empty stomach Orally Once a day for 30 day(s) Active Social History Tobacco Use: Social History Observation [...] ast year? 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) Active confirmed Problem 4007616 Arthritis (M19.90) Active confirmed Problem 683096298 Hammer toe of left foot (M20.42) Active confirmed Problem 45358048 Steppage gait (R26.89) Active confirmed Vital Signs Blood pressure diastolic 70 mm Hg 08/16/2024 Height 5ft7in in 08/16/2024 Blood pressure systolic 130 mm Hg 08/16/2024 Weight 170 lbs 08/16/2024 BMI 26.62 kg/m2 08/16/2024 Encounters Encounter Location Date Provider Diagnosis [address] [address] 10/13/2023 Erika Perica Tinea unguium B35.1 ; Pain in right toe(s) M79.674 and Pain in left toe(s) M79.[address] [address] 12/29/2023 Erika Perica Tinea unguium B35.1 ; Pain in right toe(s) M79.674 and Pain in left toe(s) M79.[address] [address] 03/17/2024 Erika Perica Tinea unguium B35.1 ; Pain in right toe(s) M79.674 and Pain in left toe(s) M79.[address] [address] 06/07/2024 Erika Perica Tinea unguium B35.1 ; Pain in right toe(s) M79.674 and Pain in left toe(s) M79.675 [facility] [address] [place] [address] 08/16/2024 Erika Dumas Tinea unguium B35.1 ; Contusion of lesser toe of left foot without damage to nail, initial encounter S90.122A ; Pain in right toe(s) M79.674 and Pain in left toe(s) M79.675 Assessments Encounter Date Diagnosis (ICD Code) Assessment Notes Treatment Notes Treatment Clinical Notes Section Notes 10/13/2023 Tinea unguium (ICD-10 - B35.1) 10/13/2023 Pain in right toe(s) (ICD-10 - M79.674) 12/29/2023 Tinea unguium (ICD-10 - B35.1) 12/29/2023 Pain in right toe(s) (ICD-10 - M79.674) 03/17/2024 Tinea unguium (ICD-10 - B35.1) 03/17/2024 Pain in right toe(s) (ICD-10 - M79.674) 06/07/2024 Tinea unguium (ICD-10 - B35.1) 06/07/2024 Pain in right toe(s) (ICD-10 - M79.674) 08/16/2024 Tinea unguium (ICD-10 - B35.1) 08/16/2024 Contusion of lesser toe of left foot without damage to nail, initial encounter (ICD-10 - S90.122A) 08/16/2024 Pain in right toe(s) (ICD-10 - M79.674) 06/07/2024 Pain in left toe(s) (ICD-10 - M79.675) 03/17/2024 Pain in left toe(s) (ICD-10 - M79.675) 12/29/2023 Pain in left toe(s) (ICD-10 - M79.675) 10/13/2023 Pain in left toe(s) (ICD-10 - M79.675) 08/16/2024 Pain in left toe(s) (ICD-10 - M79.675) Plan Of Treatment Pending Test Test Name Order Date X ray : Foot, left 3V 08/16/2024 [id number] Plate 12/19/2020 Next Appt Details Provider Name:Erika car, 10/24/2024 03:30:00 PM, [address] [facility], [place], [address], Insurance Providers Payer Name Payer Address Payer Phone Subscriber Number Group Number Insured Name Patient Relationship to Insured Coverage Start Date Coverage End Date Medicare [employer] [address] [place] [address] [id number] Jose Branham Self - patient is the insured [address] [place] [address] [address] [place] [address] [id number] Jose Branham Self - patient is the insured Medical (General) History Medical History History ICD Code cancer, testicular depression kidney disease psychiatric disorder Anxiety asthma Cataracts Gout Reflux ( GERD) Back pain- stenosis Surgical History Surgery Date(Month/Year) testicular, cancer tumor removal 1984 kidney transplant 04/2022 back surgery 05/2022 Hospitalization History Reason Date(Month/Year) [facility] - back surgery 05/2022 [facility] - kidney transplant 04/2022
--- OUTSIDE RECORDS SUMMARY | 2024-10-05 10:02 | XMS_ITS | Encounter Summary ---
Author Organization [facility], Address [address] [place] [address] Phone Care Team Providers Care Wildlife Biostation Research Ecologist Name Role Phone Jeffry Gee MD Primary Care Provider +1- [phone] Reason for Visit * Reason Comments Med Refill Encounter Details Date Type Department Care Team (Late st Contact Info) Description 09/11/2022 Refill [facility] [address] [place] [id number] Riley Hutchinson PA Chronic kidney disease stage 3A (HCC); Personal history of immunosuppression therapy; Kidney replaced by transplant Social History Tobacco Use Types Packs/Day Years [...] Support [facility] [address] [place] [phone] Bertha Quiroga FNP-C [address] [place] [address] [place] [address] documented as of this encounter Visit Diagnoses Diagnosis Chronic kidney disease stage 3A (HCC) Personal history of immunosuppression therapy Kidney replaced by transplant documented in this encounter Care Teams Wildlife Biostation Research Ecologist Relationship Specialty Start Date End Date Jeffry Gee MD [address] [place] [address] PCP - General Family Medicine 08/20/21 documented as of this encounter
--- OUTSIDE RECORDS SUMMARY | 2024-10-05 10:02 | XMS_ITS | Encounter Summary ---
Author Organization [facility], Address [address] [place] [address] Phone Care Team Providers Care Conche Operator Name Role Phone Jeffry Gee MD Primary Care Provider +1- [phone] Encounter Details Date Type Department Care Team (Late st Contact Info) Description 07/21/2024 Documentation Only [facility], [address] [place] [address] [place], [place] [address] [place] [address] Social History Tobacco Use Types [...] Support [facility] [address] [place] [address] Bertha Quiroga FNP-C [address] [place] [address] documented as of this encounter Visit Diagnoses Not on filedocumented in this encounter Care Teams Conche Operator Relationship Specialty Start Date End Date Jeffry Gee MD [address] [place] [address] PCP - General Family Medicine 08/20/21 documented as of this encounter
--- OUTSIDE RECORDS SUMMARY | 2024-10-05 10:02 | XMS_ITS | Encounter Summary ---
Author Organization [facility] Address [address] [place] [address] Phone Care Team Providers Care Manager Balance Name Role Phone Jeffry Gee MD Primary Care Provider +1- [phone] Encounter Details Date Type Department Care Team (Late st Contact Info) Description 06/15/2022 Documentation Only [facility] [place], [address] [place] [address] Rosita Ureña [address] [place] [address] Social History Tobacco Use Types [...] Support [facility] [address] [place] [address] Bertha Quiroga FNP-C [address] [place] [address] documented as of this encounter Visit Diagnoses Not on filedocumented in this encounter Care Teams Manager Balance Relationship Specialty Start Date End Date Jeffry Gee MD [address] [place] [address] PCP - General Family Medicine 08/20/21 documented as of this encounter
--- OUTSIDE RECORDS SUMMARY | 2024-10-05 10:02 | XMS_ITS | Clinical Summary ---
Author Organization [facility], Address [address] [place] [address] [place] [address] Phone Care Team Providers Care Aircraft Maintenance Supervisor Name Role Phone Jeffry Gee MD Primary Care Provider [phone] Allergies Active Allergy Reactions Criticality Noted Date Comments Haloperidol Other (see comments) 05/30/2019 Tizanidine 08/11/2023 Medications levothyroxine sodium (TIROSINT) 100 MCG capsule Take 100 mcg by mouth 1 (one) time each day Active clonazePAM (KlonoPIN) 0.5 MG tablet Take 0.5 mg by mouth 2 (two) times a day Active Sodium Fluoride 5000 PPM 1.1 % paste BRUSH THOROUGLY ONCE DAILY FOR 2 MINS BEFORE BED.DO NOT EAT/DRINK/RIN SE FOR 30 MINS 10/08/19 22 Active traMADol (ULTRAM) 50 MG tablet 03/13/20 22 Active gabapentin (NEURONTIN) 100 MG capsule TAKE 1 CAPSULE BY MOUTH 4 TIMES A DAY (DOSE INCREASE) 05/22/20 22 Active allopurinol (ZYLOPRIM) 100 MG tablet Take 1 tablet (100 mg total) by mouth 1 (one) time each day 90 tablet 3 09/09/19 23 Active tamsulosin (FLOMAX) 0.4 MG 24 hr capsule TAKE TWO CAPSULES BY MOUTH ONCE DAILY 60 capsule 11 10/13/19 24 Active carbidopa-levo dopa (SINEMET) 25-100 MG per tablet Take 1 tablet by mouth in the morning and 1 tablet in the evening and 1 tablet before bedtime. 01/14/20 24 Active Yupelri 175 MCG/3ML solution Inhale 175 mcg 10/01/19 24 Active QUEtiapine (SEROquel) 25 MG tablet Take 25 mg by mouth 01/04/20 24 Active divalproex (DEPAKOTE) 125 MG EC tablet Take 2 tablets (250 mg total) by mouth every night 02/22/20 24 Active midodrine (PROAMATINE) 5 MG tablet Take 2 tablets (10 mg total) by mouth in the morning and 2 tablets (10 mg total) in the evening and 2 tablets (10 mg total) before bedtime. 540 tablet 3 02/22/20 24 025 Active amoxicillin (AMOXIL) 500 MG capsule Take 4 capsules (2,000 mg total) by mouth 1 (one) time if needed (one hour priro to dental procedure) Take 4 capsules by mouth one hour prior to dental procedure 12 capsule 3 04/19/20 24 Active Tacrolimus ER (Envarsus XR) 1 MG tablet sustained-rele ase 24 hour Take 1 mg by mouth 1 (one) time each day 30 tablet 11 09/15/19 25 026 Active mycophenolate (MYFORTIC) 180 MG EC tablet Take 2 tablets (360 mg total) by mouth in the morning and 2 tablets (360 mg total) in the evening. 120 tablet 12 09/28/19 25 Active fludrocortison e 0.1 MG tablet Take 1 tablet (0.1 mg total) by mouth 1 (one) time each day 90 tablet 3 10/05/19 25 026 Active mycophenolate (MYFORTIC) 180 MG EC tablet Take 2 tablets (360 mg total) by mouth in the morning and 2 tablets (360 mg total) in the evening. 120 tablet 11 10/13/19 24 025 Discontinued Tacrolimus ER (Envarsus XR) 1 MG tablet sustained-rele ase 24 hour Take 2 mg by mouth 1 (one) time each day 60 tablet 11 08/16/19 25 025 Discontinued Tacrolimus ER (Envarsus XR) 0.75 MG tablet sustained-rele ase 24 hour Take 1.5 mg by mouth 1 (one) time each day 60 tablet 11 09/08/19 25 025 Discontinued fludrocortison e 0.1 MG tablet Take 0.1 mg by mouth 1 (one) time each day 025 Discontinued(Re order (does not appear on AVS)) fludrocortison e 0.1 MG tablet Take 1 tablet (0.1 mg total) by mouth 1 (one) time each day 90 tablet 3 09/14/19 25 025 Discontinued(Re order (does not appear on AVS)) Active Problems Problem Noted Date Diagnosed Date Stage 3b chronic kidney disease 12/28/2023 Orthostatic hypotension 12/08/2022 Diastolic dysfunction 12/08/2022 Essential (primary) hypertension 08/20/2022 Acute nontraumatic kidney injury 05/21/2022 Pain of bilateral thighs 02/04/2022 Hyperuricemia 12/03/2021 Benign prostatic hyperplasia 08/20/2021 Personal history of immunosuppression therapy Chronic kidney disease stage 3A 08/20/2021 Kidney replaced by transplant 05/14/2021 Overview (11/03/2021): campath induction Gout 05/30/2019 Acquired hypothyroidism Hypercalcemia Hypercholesterolemia Resolved Problems Problem Noted Date Diagnosed Date Resolved Date Stage 5 chronic kidney disease 03/27/2020 08/20/2021 Metabolic acidosis 09/06/2019 2 Nephropathy induced by other drugs, medicaments and biological substances 05/30/2019 Chronic kidney disease, stage 4 (severe) 05/30/2019 03/27/2020 Serum creatinine above reference range 08/20/2021 Encounters Date Type Department Care Team Description 10/03/2024 Refill [facility] [address] [place] [address] Heath Samuel MD 09/27/2024 Refill [facility] [address] [place] [address] Heath Samuel MD 09/14/2024 Telephone [facility] [address] [place] [address] Ya Villalobos, RN envarsus dose change 09/13/2024 11:30 AM EDT Office Visit [facility] [address] [place] [phone] Heath Samuel MD Stage 3b chronic kidney disease (HCC) (Primary Dx); Kidney replaced by transplant; Personal history of immunosuppression therapy; Orthostatic hypotension 09/07/2024 Telephone [facility] [address] [place] [address] Ya Villalobos RN envarsus dose change 09/04/2024 Orders Only [facility] [address] [place] [phone] Darling Michel MA Chronic kidney disease stage 3A (HCC) (Primary Dx); Personal history of immunosuppression therapy; Kidney replaced by transplant; Other iron deficiency anemia; Other specified hypoparathyroidism (HCC); Albuminuria, not otherwise specified 08/15/2024 Telephone [facility] [address] [place] [phone] Ya Villalobos, ETHEL envarsus dose change. 07/24/2024 Telephone [facility] [address] [place] [phone] Darling Michel MA 07/21/2024 Documentation Only [facility] [address] [place] [phone] Darling Michel MA from Last 3 Months Immunizations Immunization Administration Dates Next Due Hepatitis B 05/04/2018, 5,07/17/2014,06/14 Influenza Split High Dose Pr eservative Free IM 03/11/2015 Influenza Vaccine, Quadrival ent, Adjuvanted 01/18/2020 Influenza Whole 01/23/2020 Influenza, MDCK, Quadrivalen t, with preservative 02/09/2019,02/23/2018,02/03/2017 Influenza, Recombinant, Quad rivalent, Pf 03/19/2022 Influenza, Unspecified 02/04/2021 MMR 07/23/2016 Pfizer SARS-COV-2 03/11/2021,07/15/2020,06/24/19 21 Pneumococcal Conjugate 06/26/2014 Pneumococcal Conjugate 13-Valent 07/12/2018 Pneumococcal Polysaccharide 05/10/2017, 6 Shingrix 09/11/2017,06/18/2017,06/04/2017 Tdap 11/11/2015,07/18/2008 Zoster 09/11/2017,06/04/2017 Family History Medical History Relation Comments Heart attack Father Heart disease Father Hypertension Father ? Stroke Father Relation Status Comments Father Mother Social History Tobacco Use Types Packs/Day Years Used Date Smoking Tobacco: Former Cigarettes Q uit: 03/22/1976 Comments:Smoking History Inf o:Unknown Sex and Gender Information Value Date Recorded Sex Assigned at Not on file Legal Sex Male 4:33 PM EST Gender Identity Not on file Sexual Orientation Not on file Last Filed Vital Signs Vital Sign Reading Time Taken Comments Blood Pressure 150/70 09/13/2024 11:40 AM EDT 130/60 standing Pulse 74 04/12/2023 10:30 AM EST Temperature - - Respiratory Rate - - Oxygen Saturation - - Inhaled Oxygen Concentration - - Weight 67.7 kg (149 lb 3.2 oz) 09/13/2024 11:40 AM EDT Height 175.3 cm (5' 9 ) 04/18/2024 9:13 AM EST Body Mass Index 22.03 04/18/2024 9:13 AM EST Plan of Treatment Upcoming Encounters Date Type Department Care Team (Late st Contact Info) Description 11/20/2024 1:30 PM EDT Clinical Support [facility] [address] [place] [address] Bertha Quiroga FNP-C [address] [place] [address] [place] [address] Health Maintenance Due Date Last Done Comments Colonoscopy (Post-Transplant Patient) 05/23/2021 Pneumococcal Vaccine: 50+ Years (4 of 4 - PCV20 or PCV21) 07/12/2023 07/12/2018, 05/10/2017, 06/26/2014, Additional history exists Influenza Vaccine (Season Ended) 2025 03/19/2022, 02/04/2021, 01/23/2020, Additional history exists Hepatitis B Vaccine Aged Out 05/04/2018, 12/24/2014, 07/17/2014, Additional history exists No longer eligible based on patient's age to complete this topic Pneumococcal Vaccine: Peds (0 to 5 Years) and At-Risk Patients (6 to 49 Years) Discontinued 07/12/2018, 05/10/2017, 06/26/2014, Additional history exists Procedures Procedure Name Priority Date/Time Associated Diagnosis Comments IRON PANEL (FE, TIBC, TSAT) Routine 09/22/2024 9:24 AM EDT Chronic kidney disease stage 3A (HCC) Personal history of immunosuppression therapy Kidney replaced by transplant Iron deficiency anemia, not otherwise specified FERRITIN Routine 09/22/2024 9:24 AM EDT Chronic kidney disease stage 3A (HCC) Personal history of immunosuppression therapy Kidney replaced by transplant Iron deficiency anemia, not otherwise specified CBC AND DIFFERENTIAL Routine 09/22/2024 9:24 AM EDT Chronic kidney disease stage 3A (HCC) Personal history of immunosuppression therapy Kidney replaced by transplant Iron deficiency anemia, not otherwise specified RENAL FUNCTION PANEL Routine 09/22/2024 9:24 AM EDT Chronic kidney disease stage 3A (HCC) Personal history of immunosuppression therapy Kidney replaced by transplant Iron deficiency anemia, not otherwise specified TACROLIMUS, HIGHLY SENSITIVE, LC/MS/MS Routine 09/22/2024 9:24 AM EDT Chronic kidney disease stage 3A (HCC) Personal history of immunosuppression therapy Kidney replaced by transplant Iron deficiency anemia, not otherwise specified TACROLIMUS, HIGHLY SENSITIVE, LC/MS/MS Routine 09/13/2024 8:06 AM EDT Stage 3b chronic kidney disease (HCC) Kidney replaced by transplant Personal history of immunosuppression therapy URINALYSIS, COMPLETE Routine 09/06/2024 8:40 AM EDT Chronic kidney disease stage 3A (HCC) Personal history of immunosuppression therapy Kidney replaced by transplant Other iron deficiency anemia Other specified hypoparathyroidism (HCC) Albuminuria, not otherwise specified URINE ALBUMIN / CREATININE RATIO Routine 09/06/2024 8:40 AM EDT Chronic kidney disease stage 3A (HCC) Personal history of immunosuppression therapy Kidney replaced by transplant Other iron deficiency anemia Other specified hypoparathyroidism (HCC) Albuminuria, not otherwise specified PTH, INTACT Routine 09/06/2024 8:40 AM EDT Chronic kidney disease stage 3A (HCC) Personal history of immunosuppression therapy Kidney replaced by transplant Other iron deficiency anemia Other specified hypoparathyroidism (HCC) Albuminuria, not otherwise specified IRON PANEL (FE, TIBC, TSAT) Routine 09/06/2024 8:40 AM EDT Chronic kidney disease stage 3A (HCC) Personal history of immunosuppression therapy Kidney replaced by transplant Other iron deficiency anemia Other specified hypoparathyroidism (HCC) Albuminuria, not otherwise specified FERRITIN Routine 09/06/2024 8:40 AM EDT Chronic kidney disease stage 3A (HCC) Personal history of immunosuppression therapy Kidney replaced by transplant Other iron deficiency anemia Other specified hypoparathyroidism (HCC) Albuminuria, not otherwise specified CREATINE KINASE Routine 09/06/2024 8:40 AM EDT Chronic kidney disease stage 3A (HCC) Personal history of immunosuppression therapy Kidney replaced by transplant Other iron deficiency anemia Other specified hypoparathyroidism (HCC) Albuminuria, not otherwise specified ALT Routine 09/06/2024 8:40 AM EDT Chronic kidney disease stage 3A (HCC) Personal history of immunosuppression therapy Kidney replaced by transplant Other iron deficiency anemia Other specified hypoparathyroidism (HCC) Albuminuria, not otherwise specified AST Routine 09/06/2024 8:40 AM EDT Chronic kidney disease stage 3A (HCC) Personal history of immunosuppression therapy Kidney replaced by transplant Other iron deficiency anemia Other specified hypoparathyroidism (HCC) Albuminuria, not otherwise specified CBC AND DIFFERENTIAL Routine 09/06/2024 8:40 AM EDT Chronic kidney disease stage 3A (HCC) Personal history of immunosuppression therapy Kidney replaced by transplant Other iron deficiency anemia Other specified hypoparathyroidism (HCC) Albuminuria, not otherwise specified RENAL FUNCTION PANEL Routine 09/06/2024 8:40 AM EDT Chronic kidney disease stage 3A (HCC) Personal history of immunosuppression therapy Kidney replaced by transplant Other iron deficiency anemia Other specified hypoparathyroidism (HCC) Albuminuria, not otherwise specified MYCOPHENOLIC ACID AND METABO. Routine 09/06/2024 8:40 AM EDT Chronic kidney disease stage 3A (HCC) Personal history of immunosuppression therapy Kidney replaced by transplant Other iron deficiency anemia Other specified hypoparathyroidism (HCC) Albuminuria, not otherwise specified TACROLIMUS, HIGHLY SENSITIVE, LC/MS/MS Routine 09/06/2024 8:40 AM EDT Chronic kidney disease stage 3A (HCC) Personal history of immunosuppression therapy Kidney replaced by transplant Other iron deficiency anemia Other specified hypoparathyroidism (HCC) Albuminuria, not otherwise specified MICROSCOPIC EXAMINATION - DO NOT USE Routine 09/06/2024 8:40 AM EDT TACROLIMUS, HIGHLY SENSITIVE, LC/MS/MS Routine 08/25/2024 8:06 AM EDT Chronic kidney disease stage 3A (HCC) Personal history of immunosuppression therapy Kidney replaced by transplant TACROLIMUS LEVEL Routine 08/11/2024 8:01 AM EDT Chronic kidney disease stage 3A (HCC) Kidney replaced by transplant Personal history of immunosuppression therapy CBC AND DIFFERENTIAL Routine 08/11/2024 8:01 AM EDT Chronic kidney disease stage 3A (HCC) Kidney replaced by transplant Personal history of immunosuppression therapy RENAL FUNCTION PANEL Routine 08/11/2024 8:01 AM EDT Chronic kidney disease stage 3A (HCC) Kidney replaced by transplant Personal history of immunosuppression therapy from Last 3 Months Results * Tacrolimus, Highly Sensitive, LC/MS/MS (09/22/2024 9:24 AM EDT) Only the most recent of4 resultswithin the time period is included. Tacrolimus by Immunoassay 7.5 5.0 - 20.0 ng/mL [facility] Comment: Detection Limit = 0.8 ng/mL Target steady state trough concentration for Tacrolimus varies based on type of organ transplant immunosuppressive protocol and other patient specific factors. ??Tacrolimus trough concentrations should be interpreted in conjunction with clinical assessments of rejection and tolerability. ??Values obtained with different assay methods cannot be used interchangeably due to differences in assay methods and cross-reactivty with metabolites, nor should correction factors be applied. ??Therefore, consistent use of one assay for individual patients is recommended. Tacrolimus assay performed by [employer]. 09/22/2024 9:24 AM EDT 09/22/2024 Heath Samuel MD LAB BLOOD ORDERABLES Final Result Performing Organization Address [facility] Co de Phone Number [facility] [address] [place] [address] * Iron Panel (Fe, TIBC, TSAT) (09/22/2024 9:24 AM EDT) Only the most recent of2 resultswithin the time period is included. TIBC 287 250 - 450 ug/dL [facility] UIBC 211 111 - 343 ug/dL [facility] Iron 76 38 - 169 ug/dL [facility] Iron Saturation (TSat) 26 15 - 55 % [facility] Blood (Blood, Venous) 09/22/2024 9:24 AM EDT 09/22/2024 Heath Samuel MD LAB BLOOD ORDERABLES Final Result Performing Organization Address [facility] Co de Phone Number [facility] [address] [place] [address] * (ABNORMAL) CBC and Differential (09/22/2024 9:24 AM EDT) Only the most recent of3 resultswithin the time period is included. WBC 6.5 3.4 - 10.8 x10E3/uL [facility] RBC 3.75(L) 4.14 - 5.80 x10E6/uL [facility] Hemoglobin 11.4(L) 13.0 - 17.7 g/dL [facility] Hematocrit 33.5(L) 37.5 - 51.0 % [facility] MCV 89 79 - 97 fL [facility] MCH 30.4 26.6 - 33.0 pg [facility] MCHC 34.0 31.5 - 35.7 g/dL [facility] RDW 13.9 11.6 - 15.4 % [facility] Platelets 141(L) 150 - 450 x10E3/uL [facility] Neutrophils Relative 69 Not Estab. % [facility] Lymphocytes Relative 14 Not Estab. % [facility] Monocytes 13 Not Estab. % [facility] Eosinophils Relative 2 Not Estab. % [facility] Basophils Relative 1 Not Estab. % [facility] Neutrophils Absolute 4.6 1.4 - 7.0 x10E3/uL [facility] Lymphocytes Absolute 0.9 0.7 - 3.1 x10E3/uL [facility] Monocytes Absolute 0.9 0.1 - 0.9 x10E3/uL [facility] Eosinophils Absolute 0.1 0.0 - 0.4 x10E3/uL [facility] Basophils Absolute 0.0 0.0 - 0.2 x10E3/uL [facility] Immature Granulocytes 1 Not Estab. % [facility] Immature Grans (Absolute) 0.0 0.0 - 0.1 x10E3/uL [facility] Blood (Blood, Venous) 09/22/2024 9:24 AM EDT 09/22/2024 Heath Samuel MD LAB BLOOD ORDERABLES Final Result [facility] [address] [place] [address] * Ferritin (09/22/2024 9:24 AM EDT) Only the most recent of2 resultswithin the time period is included. Pathologist [facility] Ferritin 319 30 - 400 ng/mL [facility] Blood (Blood, Venous) 09/22/2024 9:24 AM EDT 09/22/2024 Heath Samuel MD LAB BLOOD ORDERABLES Final Result Performing Organization Address [facility] Co de Phone Number [facility] [address] [place] [address] * (ABNORMAL) Renal Function Panel (09/22/2024 9:24 AM EDT) Only the most recent of3 resultswithin the time period is included. Pathologist [facility] Glucose 85 70 - 99 mg/dL [facility] BUN 21 8 - 27 mg/dL [facility] Creatinine 1.58(H) 0.76 - 1.27 mg/dL [facility] eGFR CKD-EPI CR 2020 46(L) >59 mL/min/1.7 3 [facility] BUN/Creatinine Ratio 13 10 - 24 [facility] Sodium 131(L) 134 - 144 mmol/L [facility] Potassium 5.0 3.5 - 5.2 mmol/L [facility] Chloride 95(L) 96 - 106 mmol/L [facility] Bicarbonate (CO2) 21 20 - 29 mmol/L [facility] Calcium 10.0 8.6 - 10.2 mg/dL [facility] Albumin 4.6 3.8 - 4.8 g/dL [facility] Phosphorus 3.4 2.8 - 4.1 mg/dL [facility] Blood (Blood, Venous) 09/22/2024 9:24 AM EDT 09/22/2024 us Heath Samuel MD LAB BLOOD ORDERABLES Final Result [facility] [address] [place] [address] * (ABNORMAL) Urinalysis, Complete w/reflex to Culture (09/06/2024 8:40 AM EDT) Specific [place], Urine 1.013 1.005 - 1.030 [facility] pH Urine 7.0 5.0 - 7.5 [facility] Color, Urine Yellow Yellow [facility] Appearance Urine Clear Clear [facility] WBC Esterase Urine Negative Negative [facility] Protein, Ur 1+(A) Negative/Tra ce [facility] [phone] Glucose, Ur Negative Negative [facility] Ketones, Urine Negative Negative [facility] Blood Urine Negative Negative [facility] Bilirubin Urine Negative Negative [facility] Urobilinogen Urine 0.2 0.2 - 1.0 mg/dL [facility] [phone] Nitrite, Urine Negative Negative [facility] [phone] Microscopic Examination See below: [facility] [phone] Comment:Microscopic was chris cated and was performed. URINALYSIS REFLEX Comment [facility] [phone] Comment:This specimen will n ot reflex to a Urine Culture. Urine (Urine, Clean Catch) 09/06/2024 8:40 AM EDT 09/06/2024 Heath Samuel MD LAB URINE ORDERABLES Final Result Performing Organization Address City/[facility]/ZIP Co de Phone Number [facility] [address] [place] [address] * (ABNORMAL) Mycophenolic Acid and [employer]. (09/06/2024 8:40 AM EDT) Mycophenolic Acid 0.4(L) 1.0 - 3.5 ug/mL [facility] Mycophenolic Acid Glucuronide 53 15 - 125 ug/mL [facility] Blood (Blood, Venous) 09/06/2024 8:40 AM EDT 09/06/2024 N[facility]ative [facility] - 09/11/2024 8:06 PM EDT Test(s) 575824-[id number] Acid; 473464- Mycophenolic Acid Glucuronide was developed and its performance characteristics determined by [facility]. It has not been cleared or approved by the Food and Drug Administration. Heath Samuel MD LAB BLOOD ORDERABLES Final Result [facility] [place] [address] [place] [address] * Microscopic Examination (09/06/2024 8:40 AM EDT) WBC, Urine None seen 0 - 5 /hpf [facility] RBC, Urine None seen 0 - 2 /hpf [facility] Squamous Epithelial, Urine None seen 0 - 10 /hpf [facility] Casts None seen None seen /lpf [facility] Bacteria, Urine None seen None seen/Few [facility] 09/06/2024 8:40 AM EDT 09/06/2024 Heath Samuel MD LAB MICROBIOLOGY - GENERAL ORDERABLES Final Result [facility] [address] [place] [address] * (ABNORMAL) Urine Albumin / Creatinine Ratio (09/06/2024 8:40 AM EDT) Creatinine, Ur 75.8 Not Estab. mg/dL [facility] Albumin, Urine 155.5 Not Estab. ug/mL [facility] Albumin/Creatin ine Ratio 205(H) 0 - 29 mg/g creat [facility] Comment: ? Normal: ?0 - ??29 ? Moderately increased: 30 - 300 ? Severely increased: ? >300 Urine (Urine, Clean Catch) 09/06/2024 8:40 AM EDT 09/06/2024 Heath Samuel MD LAB URINE ORDERABLES Final Result Performing Organization Address [facility]/ZIP Co de Phone Number [facility] [address] [place] [address] * ALT (09/06/2024 8:40 AM EDT) ALT (SGPT) 7 0 - 44 IU/L [facility] Blood (Blood, Venous) 09/06/2024 8:40 AM EDT 09/06/2024 Heath Samuel MD LAB BLOOD ORDERABLES Final Result Performing Organization Address [facility] Co de Phone Number [facility] [address] [place] [address] * AST (09/06/2024 8:40 AM EDT) AST (SGOT) 15 0 - 40 IU/L [facility] Blood (Blood, Venous) 09/06/2024 8:40 AM EDT 09/06/2024 Heath Samuel MD LAB BLOOD ORDERABLES Final Result Performing Organization Address [facility] Co de Phone Number [facility] [address] [place] [address] * (ABNORMAL) PTH, Intact (09/06/2024 8:40 AM EDT) PTH 79(H) 15 - 65 pg/mL [facility] Blood (Blood, Venous) 09/06/2024 8:40 AM EDT 09/06/2024 Heath Samuel MD LAB BLOOD ORDERABLES Final Result Performing Organization Address City/[facility]/ZIP Co de Phone Number [facility] [address] [place] [address] * CK (09/06/2024 8:40 AM EDT) Creatine Kinase (CK/CPK) 69 41 - 331 U/L [facility] Blood (Blood, Venous) 09/06/2024 8:40 AM EDT 09/06/2024 Heath Samuel MD LAB BLOOD ORDERABLES Final Result [facility] [address] [place] [address] * Tacrolimus level (08/11/2024 8:01 AM EDT) [facility] Tacrolimus Lvl 5.5 5.0 - 20.0 ng/mL [facility] Comment: Target steady state trough concentration for Tacrolimus varies based on type of organ transplant immunosuppressive protocol and other patient specific factors. ??Tacrolimus trough concentrations should be interpreted in conjunction with clinical assessments of rejection and tolerability. ??Values obtained with different assay methods cannot be used interchangeably due to differences in assay methods and cross-reactivty with metabolites, nor should correction factors be applied. ??Therefore, consistent use of one assay for individual patients is recommended. Detection Limit = 0.5 ng/mL Performed by LC-MS/MS technology ?Please note reference interval change Blood (Blood, Venous) 08/11/2024 8:01 AM EDT 08/11/2024 Narrative [facility] - 08/14/2024 11:05 PM EDT Test(s) 254263-[id number] (FK506), Blood was developed and its performance characteristics determined by [employer]. It has not been cleared or approved by the Food and Drug Administration. Heath Samuel MD LAB BLOOD ORDERABLES Final Result [facility] [place] [address] [place] [address] from Last 3 Months Insurance [facility] Medicare [facility] [place] [address] Care Teams Aircraft Maintenance Supervisor Relationship Specialty Start Date End Date Jeffry Gee MD [facility] [address] [place] [id number] PCP - General Family Medicine 08/20/21
--- OUTSIDE RECORDS SUMMARY | 2024-10-05 10:02 | XMS_ITS | Encounter Summary ---
Author Organization [facility] [place], Address [address] [place] [address] Phone Care Team Providers Care Steel Wool Machine Operator Name Role Phone Jeffry Gee MD Primary Care Provider +1- [phone] Encounter Details Date Type Department Care Team (Late st Contact Info) Description 07/15/2022 Documentation Only [facility], [address] [place] [address] Linda CoelloRye, [place] [address] [place] [address] Social History Tobacco Use Types [...] Support [facility] [address] [place] [address] Bertha Quiroga FNP-C [address] [place] [phone] documented as of this encounter Visit Diagnoses Not on filedocumented in this encounter Care Teams Steel Wool Machine Operator Relationship Specialty Start Date End Date Jeffry Gee MD [address] [place] [address] PCP - General Family Medicine 08/20/21 documented as of this encounter
--- OUTSIDE RECORDS SUMMARY | 2024-10-05 10:02 | XMS_ITS | Encounter Summary ---
Author Organization [facility] Address [address] [place] [address] Phone Care Team Providers Care [employer] Name Role Phone Jeffry Gee MD Primary Care Provider +1- [phone] Encounter Details Date Type Department Care Team (Late st Contact Info) Description 03/09/2024 Documentation Only [facility] [place], [address] [place] [address] Darling MichelLIMEKILN, [place] [address] [place] [address] Social History Tobacco Use Types [...] Support [facility] [place] [address] [place] [address] Bertha Quiroga FNP-C [address] [place] [address] documented as of this encounter Visit Diagnoses Not on filedocumented in this encounter Care Teams [employer] Relationship Specialty Start Date End Date Jeffry Gee MD [address] [place] [address] PCP - General Family Medicine 08/20/21 documented as of this encounter
--- OUTSIDE RECORDS SUMMARY | 2024-10-05 10:02 | XMS_ITS | Encounter Summary ---
Author Organization [facility] Address [address] [place] [address] Phone Care Team Providers Care Case Advocate Name Role Phone Jeffry Gee MD Primary Care Provider +1- [phone] Encounter Details Date Type Department Care Team (Late st Contact Info) Description 01/25/2024 Documentation Only [facility] [place], [address] [place] [address] Darling Michel[place]ANDER, [place] [address] [place] [address] Social History Tobacco Use Types [...] Support [facility] [place] [address] [place] [address] Bertha Quiroga FNP-C [address] [place] [address] documented as of this encounter Visit Diagnoses Not on filedocumented in this encounter Care Teams Case Advocate Relationship Specialty Start Date End Date Jeffry Gee MD [address] [place] [address] PCP - General Family Medicine 08/20/21 documented as of this encounter
--- OUTSIDE RECORDS SUMMARY | 2024-10-05 10:02 | XMS_ITS | Encounter Summary ---
Author Organization [facility] [place], Address [address] [facility] [place] [address] Phone Care Team Providers Care Adhesive Bandage Making Operator Name Role Phone Jeffry Gee MD Primary Care Provider +1- [phone] Encounter Details Date Type Department Care Team (Late st Contact Info) Description 05/21/2022 Documentation Only [facility] [place], [address] [place] [address] Heath Samuel MD [address] [place] [address] [place] [phone] Social History Tobacco Use Types Packs/Day Years [...] Support [facility] [place] [address] [place] [address] Bertha Quiroga FNP-C [address] [place] [address] documented as of this encounter Visit Diagnoses Not on filedocumented in this encounter Care Teams Adhesive Bandage Making Operator Relationship Specialty Start Date End Date Jeffry Gee MD [address] [place] [address] PCP - General Family Medicine 08/20/21 documented as of this encounter
--- OUTSIDE RECORDS SUMMARY | 2024-10-05 10:02 | XMS_ITS | Clinical Summary ---
Author Organization [facility] Address [address] [place] [address] Care Team Providers Care Welcome Wagon Hostess Name Role Phone Jeffry Gee MD Primary Care Provider +1- [phone] Social History Tobacco Use Types Packs/Day Years Used Date Smoking Tobacco: Never Assessed Sex and Gender Information Value Date Recorded Sex Assigned at Male 01/26/2024 4:35 PM EDT Legal Sex Male 2:08 PM EDT Gender Identity Male 01/26/2024 4:35 PM EDT Sexual Orientation Heterosexual (straight) 01/25 4:35 PM EDT Plan of Treatment Health Maintenance Due Date Last Done Comments Hepatitis C Virus Screening 1955 DTaP/Tdap/Td Vaccines (1 - Tdap) 1972 Colonoscopy 1998 Pneumococcal Vaccines 50+ (1 of 1 - PCV) 2003 Zoster (Shingles) Vaccine (1 of 2) 2003 COVID-19 Vaccine ( season) 2024 11/05/2023, 05/15/2023, 03/11/2021, Additional history exists Influenza Vaccine 12/22/2024 03/06/2023, , 03/19/2022, Additional history exists RSV Vaccine 60 years and older and Patients (1 - 1-dose 75+ series) 2028 Hepatitis B Vaccines Aged Out No long er eligible based on patient's age to complete this topic Insurance MEDICARE PART A & B [facility]PPLE[place] ONLY Care Teams Welcome Wagon Hostess Relationship Specialty Start Date End Date Jeffry Gee MD [address] [place] [address] [address] [place] [address] PCP - General Family Medicine 01/26/24
--- OUTSIDE RECORDS SUMMARY | 2024-10-05 10:02 | XMS_ITS | Encounter Summary ---
Author Organization [facility] [place], Address [address] [place] [address] Phone Care Team Providers Care Traffic Assistant Name Role Phone Jeffry Gee MD Primary Care Provider +1- [phone] Reason for Visit * Reason Comments Med Refill Encounter Details Date Type Department Care Team (Late Contact Info) Description 01/21/2022 [facility]ill [facility] [address] [place] [address] Heath Samuel MD [address] [place] [address] [place] [address] Social History Tobacco Use Types [...] Clinical Support [facility] [address] [place] [address] Bertha Quiroga FNP-C [address] [place] [address] [place] [address] documented as of this encounter Visit Diagnoses Not on filedocumented in this encounter Care Teams Traffic Assistant Relationship Specialty Start Date End Date Jeffry Gee MD [address] [place] [address] PCP - General Family Medicine 08/20/21 documented as of this encounter
--- OUTSIDE RECORDS SUMMARY | 2024-10-05 10:02 | XMS_ITS | Encounter Summary ---
Author Organization [facility] Address [address] [place] [address] Phone Care Team Providers Care Product Handler Name Role Phone Jeffry Gee MD Primary Care Provider +1- [phone] Encounter Details Date Type Department Care Team (Late st Contact Info) Description 01/13/2024 Documentation Only [facility] [place], [address] [place] [address] Darling MichelOURAY, [place] [address] [place] [address] Social History Tobacco Use Types [...] Support [facility] [place] [address] [place] [address] Bertha Quiroga FNP-C [address] [place] [address] documented as of this encounter Visit Diagnoses Not on filedocumented in this encounter Care Teams Product Handler Relationship Specialty Start Date End Date Jeffry Gee MD [address] [place] [address] PCP - General Family Medicine 08/20/21 documented as of this encounter
--- OUTSIDE RECORDS SUMMARY | 2024-10-05 10:02 | XMS_ITS | Encounter Summary ---
Author Organization [facility] Address [address] [place] [address] Phone Care Team Providers Care Bus Or Truck Garage Mechanic Name Role Phone Jeffry Gee MD Primary Care Provider +1- [phone] Encounter Details Date Type Department Care Team (Late st Contact Info) Description 01/04/2024 Documentation Only [facility] [place], [address] [place] [address] Darling MichelFAYETTEVILLE, [place] [address] [place] [address] Social History Tobacco Use Types [...] Support [facility] [place] [address] [place] [address] Bertha Quiroga FNP-C [address] [place] [address] documented as of this encounter Visit Diagnoses Not on filedocumented in this encounter Care Teams Bus Or Truck Garage Mechanic Relationship Specialty Start Date End Date Jeffry Gee MD [address] [place] [address] PCP - General Family Medicine 08/20/21 documented as of this encounter
--- OUTSIDE RECORDS SUMMARY | 2024-10-05 10:02 | XMS_ITS | Encounter Summary ---
Author Organization [facility] [place], Address [address] [place] [address] Phone Care Team Providers Care Concreting Supervisor Name Role Phone Jeffry Gee MD Primary Care Provider +1- [phone] Reason for Visit * Reason Comments Med Refill Encounter Details Date Type Department Care Team (Late Contact Info) Description 10/26/2022 Refill [facility] [address] [place] [address] Heath Samuel MD [address] [place] [address] [place] [address] Social History Tobacco Use Types [...] Clinical Support [facility] [address] [place] [address] Bertha Quiroga FNP-C [address] [place] [address] [place] [address] documented as of this encounter Visit Diagnoses Not on filedocumented in this encounter Care Teams Concreting Supervisor Relationship Specialty Start Date End Date Jeffry Gee MD [address] [place] [address] PCP - General Family Medicine 08/20/21 documented as of this encounter
--- OUTSIDE RECORDS SUMMARY | 2024-10-05 10:02 | XMS_ITS ---
Author Organization [facility] Care Team Providers Care Medical Insurance Verifier Name Role Phone Marisol Álvarez Unavailable Unavailable Fabiola Chamorro Unavailable Unavailable Yessy Wells Unavailable Unavailable Earl Romano Unavailable Unavailable Claudette Mcleod Unavailable Unavailable Allergies and adverse reactions Code CodeSystem Substance Reaction Severity StartDate Concern Status Haldol Unknown 06/03/2022 active Cheese Unknown 06/03/2022 active Care Team Name Role Address Phone Organization Dates Fabiola Chamorro PCP [address], [place], [address], [place] (Office): [facility] 06/03/2022 - 06/19/2022 Marisol Álvarez [address] [place], [address], [place] (Office): [facility] 06/03/2022 - 06/19/2022 Yessy Wells [address] , [place], [address], [place] (Office): [facility] 06/03/2022 - 06/19/2022 Earl Romano [address] [place], [address], [place] (Office): [facility] 06/03/2022 - 06/19/2022 Claudette Mcleod [address] [place] [address], [place], [address], [place] (Office): [facility] 06/03/2022 - 06/19/2022 Immunizations Immunization Status Vaccine Details Vaccine Code CodeSystem Date Notes SARS-COV-2 (COVID-19) completed SARS-COV-2 (COVID-19) vaccine, mRNA, spike protein, LNP, preservative free, 30 mcg/0.3mL dose, mable-sucrose formulation Mfg: [employer] Step 2 of Multi-step with next step required 217 CVX created date: 06/04/2022 administere d date: 07/15/2020 SARS-COV-2 (COVID-19) completed SARS-COV-2 (COVID-19) vaccine, mRNA, spike protein, LNP, preservative free, 30 mcg/0.3mL dose, mable-sucrose formulation Mfg: [employer] Step 1 of Multi-step with next step required 217 CVX created date: 06/04/2022 administere d date: 06/24/2020 SARS-COV-2 (COVID-19 BOOSTER) completed SARS-COV-2 (COVID-19) vaccine, mRNA, spike protein, LNP, preservative free, 30 mcg/0.3mL dose, mable-sucrose formulation Mfg: [employer] 217 CVX created date: 06/04/2022 administere d date: 03/11/2021 Booster #1 Mental Status Section Date Assessment Total Score Description 06/19/2022 BIMS 11 moderate cognit abril impairment CAM 0 No delirium ind icated PHQ-9 00 06/08/2022 BIMS 11 moderate cognit abril impairment CAM 0 No delirium ind icated PHQ-9 04 minimal depress ion Problems Problem # Description Date of onset Resolved Date Code CodeSystem Concern Status 1 ENCOUNTER FOR SURGICAL AFTERCARE FOLLOWING SURGERY ON THE NERVOUS SYSTEM 06/04/[address] active 2 AFTERCARE FOLLOWING JOINT REPLACEMENT SURGERY 06/03/[address] active 3 BENIGN PROSTATIC HYPERPLASIA WITH LOWER URINARY TRACT SYMPTOMS 06/03/[address] active 4 BIPOLAR DISORDER, CURRENT EPISODE DEPRESSED, MILD OR MODERATE SEVERITY, UNSPECIFIED 06/03/[address] active 5 CHRONIC KIDNEY DISEASE, STAGE 4 (SEVERE) 06/03/[address] active 6 GASTRO-ESOPHAGEAL REFLUX DISEASE WITHOUT ESOPHAGITIS 06/03/[address] active 7 GOUT, UNSPECIFIED 06/03/[address] active 8 HYPERLIPIDEMIA, UNSPECIFIED 06/03/[address] active 9 HYPOTHYROIDISM, UNSPECIFIED 06/03/[address] active 10 KIDNEY TRANSPLANT STATUS 06/03/[address] active 11 MALIGNANT NEOPLASM OF UNSPECIFIED TESTIS, UNSPECIFIED WHETHER DESCENDED OR UNDESCENDED 06/03/[address] active 12 MUSCLE WEAKNESS (GENERALIZED) 06/03/[address] active 13 OTHER ABNORMALITIES OF GAIT AND MOBILITY 06/03/[address] active 14 OTHER LACK OF COORDINATION 06/03/[address] active 15 PERSONAL HISTORY OF COVID-19 06/03/[address] active 16 POSTLAMINECTOMY SYNDROME, NOT ELSEWHERE CLASSIFIED 06/03/[address] active 17 SPINAL STENOSIS, LUMBAR REGION WITH NEUROGENIC CLAUDICATION 06/03/[address] active Reason for Referral No Reasons for Referral Entered Social History Social History Observation Description Start Date End Date Code Code System Current Smoking Status Tobacco smoking consumption unknown 787582303 SNOMED CT Sex Assigned At Male 1955 [address]-0 [facility] Gender Identity Vital Signs Code Code System Vitals Name Values and Units Timing Information 9279-1 [facility] Respiratory Rate Value=16.0 Units=/m in 06/19/2022 8462-[facility] Blood Pressure-Diastolic Value=69 Un its=mmHg 06/19/2022 8480-6 LOINC Blood Pressure-Systolic Wphof=187 Un its=mmHg 06/19/2022 8310-5 [facility] Body Temperature Value=97.7 Units=?? F 06/19/2022 8867-4 [facility] Heart rate Value=76.0 Units=/min 63558-8 LOINC O2 % BldC Oximetry Value=97.0 Units= % 06/19/2022 28987-6 LOINC Pain Level Value=0.0 06/19/2022 83000-0 LOINC Weight Xnkcy=224.8 Units=Lbs 8302-2 LOINC Height Value=66.9 Units=Inches 06/04/2022
--- OUTSIDE RECORDS SUMMARY | 2024-10-05 10:02 | XMS_ITS | Encounter Summary ---
Author Organization [facility] Address [address] [place] [address] Phone Care Team Providers Care In Store Representative Name Role Phone Jeffry Gee MD Primary Care Provider +1- [phone] Encounter Details Date Type Department Care Team (Late Contact Info) Description 09/01/2021 Documentation Only [facility] [place], [address] [place] [address] [place], [place] [address] [place] [address] Social History Tobacco Use Types Packs/Day Years Used Date Smoking Tobacco: Former Cigarettes Q uit: 03/22/1976 Comments:Smoking History Inf o:Unknown Sex and Gender Information Value Date Recorded Sex Assigned at Not on file Legal Sex Male 4:33 PM EST Gender Identity Not on file Sexual Orientation Not on file COVID-19 Exposure Response Date Recorded In the last month, have you been in contact with someone who was confirmed or suspected to have Coronavirus / COVID-19? Unable to assess 08/08/2021 3:41 PM EDT documented as of this encounter Plan of Treatment Upcoming Encounters Date Type Department Care Team (Late st Contact Info) Description 11/20/2024 1:30 PM EDT Clinical Support [facility] [place] [address] [place] [address] Bertha Quiroga FNP-C [address] [place] [address] documented as of this encounter Visit Diagnoses Not on filedocumented in this encounter Care Teams In Store Representative Relationship Specialty Start Date End Date Jeffry Gee MD [address] [place] [address] PCP - General Family Medicine 08/20/21 documented as of this encounter
--- OUTSIDE RECORDS SUMMARY | 2024-10-05 10:02 | XMS_ITS ---
Author Organization [facility] Address [address] [facility] [place] [address] Care Team Providers Care Computer Teacher Name Role Phone Jeffry Gee MD Primary Care Provider Erika Matute Unavailable [phone] Allergies Allergen (clinical drug ingredient) Drug/Non Drug Allergy documented on EMR Reaction Allergy Type Onset Date Status Seasonale Unknown Drug Allergy Active REASON FOR VISIT Painful nail(s) aggrevated by shoes causing difficulty standing/walking Medications Medication SIG (Take, Route, Frequency, Duration) Notes Start Date End Date Status Lebanon 3 1000 MG 1 capsule Orally Onc e a day Not-Taking SEROquel 100 MG 1 tablet at bedtime Orally Once a day Not-Taking Carbidopa-Levodopa 25-100 MG Oral for 30 Days Active Iron (Ferrous Sulfate) 325 (65 Fe) MG 1 tablet Orally Twice a day Not-Taking Spironolactone 25 MG 1 tablet Orally Not-Taking Levothyroxine Sodium 100 MCG 1 tablet in the morning on an empty stomach Orally Once a day for 30 day(s) Active Allopurinol 100 MG 1 tablet Orally Once [...] tablet Orally Twic e a day Active Social History Tobacco Use: Social History Observation Description Date Details (start date - stop date) Never Smoker NA - NA Tobacco Use/Smoking Question Answer Notes Are you a: nonsmoker Additional Findings: Tobacco Non-User Current no n-smoker Tobacco use other than smoking: Question Answer Notes Are you an other tobacco user? No Vital Signs Height 5ft7in in 06/07/2024 Weight 170 lbs 06/07/2024 BMI 26.62 kg/m2 06/07/2024 Blood pressure systolic 123 mm Hg 06/07/19 25 Blood pressure diastolic 80 mm Hg 025 Encounters Encounter Location Date Provider Diagnosis [facility] [address] [address] 06/07/2024 Erika Piter Tinea unguium B35.1 ; Pain in right toe(s) M79.674 and Pain in left toe(s) M79.675 Assessments Encounter Date Diagnosis (ICD Code) Assessment Notes Treatment Notes Treatment Clinical Notes Section Notes 06/07/2024 Tinea unguium (ICD-10 - B35.1) 06/07/2024 Pain in right toe(s) (ICD-10 - M79.674) 06/07/2024 Pain in left toe(s) (ICD-10 - M79.675) Plan Of Treatment Next Appt Details Follow Up: 2 Months, Reason: Provider Name:Erika Jessica car, 10/24/2024 03:30:00 PM, [address] [place] [address], [phone], Procedure Notes * Category Sub-Category Detail Notes [...] use of a nail nipper and/or dremel-type flat grinder operator, to a more viable healthy nail plate [...] to maintain effectiveness in symptomatic relief - 94193 Progress Notes * Jose GREEN ADOB:05/1955 (69 yo M)Acc No.[id number]:06/07/2024 Progress Note Patient:?Jose GREEN Provider:?Erika Dumas DPM :1955???Age:69 Y???Sex:Male Camacho e:06/07/2024 Address:[address] [place], [place] [phone] Pcp:Jeffry Gee MD Subjective: * Chief Complaints: * ???Painful nail(s) aggrevate d by shoes causing difficulty standing/walking * HPI: ???Painful Nails:?Pt States Last PCP Visit:?Date:?04/23/2024 * ROS:?General/Constitutional:?Nausea?denies, denies.?Vomiting?denies, denies.?Hunger Thirst?denies, denies.?Loss appetite?denies, denies.?Chills?denies, denies.?Fatigue?denies, denies.?Fever?denies, denies.?Night Sweats denies, denies.?Unexplained weight loss?denies, denies.?Unexplained weight gain?denies, denies.?HEENTM:?Dentures?denies, denies.?Dizziness?denies, denies.?Glasses/contacts?denies, denies.?Retinopathy?denies, denies.?Blurred/double vision?denies, denies.?TMJ?denies, denies.?Discharge/drainage?denies, denies.?Implants?denies, denies.?Sore throat?denies, denies.?Dental implants?denies, denies.?Hard of hearing ?denies, denies.?Difficulty chewing/swallowing/speaking?denies, denies.?Nose bleeds?denies, denies.?Sore mouth?denies, denies.?Respiratory:?On Oxygen?denies, denies.?Pneumonia/pleurisy?denies, denies.?Bronchitis?denies, denies.?Emphysema?denies, denies.?Coughing?denies, denies.?Cough blood?denies, denies.?Shortness of breath?denies, denies.?Wheezing?denies, denies.?Cardiovascular:?Pacemaker?denies, denies.?MVP?denies, denies.?WPW?denies, denies.?CHF?denies, denies.?Heart attack?denies, denies.?Septal defect?denies, denies.?Rapid beat?denies, denies.?Chest pain ?denies, denies.?Atrial Fib.?denies, denies.?Murmur/Palpitations?denies, denies.?Gastrointestinal:?Hemorrhoids?denies, denies.?Stomach/Abdominal pain?denies, denies.?Dark blood stool?denies, denies.?Irritable bowel ?denies, denies.?Constipation?denies, denies.?Diarrhea?denies, denies.?Hematology:?Swelling?admits, admits.?Clots?denies, denies.?Varicose Veins?denies, denies.?Bruising?denies, denies.?Bleeding problem?denies, denies.?Genitourinary:?Blood urine?denies, denies.?Frequent/Painfu/urination/bladder control?denies, denies.?Kidney stones?denies, denies.?Infection (UTI)?denies, denies.?Nephropathy?denies, denies.?sex trans dis (STD)?denies, denies.?Prostate?denies, denies.?Musculoskeletal:?Hammertoes?denies, denies.?Bunions?denies, denies.?Back Pain?denies, denies.?Muscle Cramps/ Resting?denies, denies.?Muscle cramps / walking?denies, denies.?Generalized aches and pains?denies, denies.?Weakness?denies, denies.?Integ.:?Segovia?denies, denies.?Scars?denies, denies.?Corns/calluses?denies, denies.?Ingrown nails?denies, denies.?Painful nails?admits,admits.?Open Sores?denies, denies.?Rashes?denies, denies.?Neurologic:?Difficulty sleeping?denies, denies.?Brain disorder?denies, denies.?Numbness?admits, admits.?Balance trouble?denies, denies.?Confusion?denies, denies.?Fainting/blackouts?denies, denies.?Tingling?admits, admits.?Tremors?denies, denies.? * Medical History:? * Surgical History:?testicular , cancer tumor removal 1984kidney transplant ack surgery 05/2022 * Hospitalization/Major Diagno stic Procedure:?[facility] - kidney transplant - back surgery 05/2022 * Family History:?Mother: dece ased, stroke, heart attack.?Father: , stroke.? * Social History:?Tobacco Use:?Tobacco Use/Smoking?Are you a:?nonsmoker ?Additional Findings: Tobacco Non-User?Current non-smoker ?Tobacco use other than smoking?Are you an other tobacco user??No * Medications:?TakingDepakote 250 MG Tablet Delayed Release [...] a day Carbidopa-Levodopa 25-100 MG Tablet Oral Taking Depakote 250 MG [...] day Taking Carbidopa-Levodopa 25-100 MG Tablet Oral Not-Taking/PRNSEROquel 100 MG Tablet 1 tablet at bedtime Orally Once a day Lebanon 3 1000 MG Capsule 1 capsule Orally Once a day Spironolactone 25 MG Tablet 1 tablet Orally Iron (Ferrous Sulfate) 325 (65 Fe) MG Tablet 1 tablet Orally Twice a day Not-Taking/PRN SEROquel 100 MG Tablet 1 tablet at bedtime Orally Once a day Not-Taking/PRN Lebanon 3 1000 MG Capsule 1 capsule Orally Once a day Not- Taking/PRN Spironolactone 25 MG Tablet 1 tablet Orally Not-Taking/PRN Iron (Ferrous Sulfate) 325 (65 Fe) MG Tablet 1 tablet Orally Twice a day * Allergies:?Seasonaleyes[Nick rgies Verified] Objective: * Vitals:?Ht: 5ft7in, Wt:170, BMI:26.62, Shoe size: 9.5, BP:123/80mm Hg, Ht-cm: 170.18 cm, Wt-k.11 kg. * Examination: ???Nails: ?NAILS are:?Elongated, overgrown, dystrophic, lytic, greater than 3mm thick, discolored and friable with crumbly malodorous subungual debris, with pain on palpation , TA, T1, T2, T3, T4, T5, T6, T7, T8, T9.? Assessment: * Assessment: 1.?Tinea unguium - B35.1 (Pr imary)???2.?Pain in right toe(s) - M79.674???3.?Pain in left toe(s) - M79.675??? Plan: * [...] use of a nail nipper and/or dremel-type flat grinder operator, to a more viable healthy nail plate [...] to maintain effectiveness in symptomatic relief - 31351.? * Procedure Codes:?67770 DEBRI DE NAIL, 6 OR MORE, Modifiers: XS * Follow Up:?2 Months * Images: * Sign off status: Completed true * Provider:?Erika Dumas DPM Date:? Generated for Barbie rizvi/Sara/Khari on:?10/05/2024 10:01 AM EDT History and Physical Notes * HPI (History of Present Illness) Category Sub-Category Detail Notes Category Not es Painful Nails Pt States Last PCP Visit: Date:: 04/23/2024 Examination Category Sub-Category Detail Notes Category Not es Nails NAILS are: Elongated, overg rown, dystrophic, lytic, greater than 3mm thick, discolored and friable with crumbly malodorous subungual debris, with pain on palpation , TA, T1, T2, T3, T4, T5, T6, T7, T8, T9
--- OUTSIDE RECORDS SUMMARY | 2024-10-05 10:02 | XMS_ITS | Encounter Summary ---
Author Organization [facility], Address [address] [place] [address] Phone Care Team Providers Care Cash Management Specialist Name Role Phone Jeffry Gee MD Primary Care Provider [phone] Reason for Visit * Reason Onset Date Comments Med Refill 09/06/2022 Encounter Details Date Type Department Care Team (Late st Contact Info) Description 09/06/2022 Refill [facility] [address] [place] [phone] Riley Hutchinson PA Social History Tobacco Use Types Packs/Day Years [...] Clinical Support [facility] [address] [place] [phone] Bertha Quiroga FNP-C [address] [place] [address] [place] [phone] documented as of this encounter Visit Diagnoses Not on filedocumented in this encounter Care Teams Cash Management Specialist Relationship Specialty Start Date End Date Jeffry Gee MD [address] [place] [address] [place] [phone] PCP - General Family Medicine 08/20/21 documented as of this encounter
--- OUTSIDE RECORDS SUMMARY | 2024-10-05 10:02 | XMS_ITS ---
Author Organization [facility] Address [address] [place] [address] Care Team Providers Care Computer Information Systems Instructor Name Role Phone Jeffry Gee MD Primary Care Provider Erika Matute Unavailable [phone] Allergies Allergen (clinical drug ingredient) Drug/Non Drug Allergy documented on EMR Reaction Allergy Type Onset Date Status Seasonale Unknown Drug Allergy Active REASON FOR VISIT Painful nail(s) aggrevated by shoes causing difficulty standing/walking Medications Medication SIG (Take, Route, Frequency, Duration) Notes Start Date End Date Status Tamsulosin HCl 0.4 MG 1 capsule Orally O nce a day Active Depakote 250 MG 1 tablet Orally Twic e a day Active Iron (Ferrous Sulfate) 325 (65 Fe) MG 1 tablet Orally Twice a day Not-Taking SEROquel 100 MG 1 tablet at bedtime Orally Once a day Active Pantoprazole Sodium 40 MG 1 tablet Orall y Once a day Active Levothyroxine Sodium 100 MCG 1 tablet in the morning on an empty stomach Orally Once a day for 30 day(s) Active Luck 3 1000 MG 1 capsule Orally Onc e a day Not-Taking Spironolactone 25 MG 1 tablet Orally Not-Taking Tacrolimus ER 1 MG as directed Orally Active Allopurinol 100 MG 1 tablet Orally Once a day for 30 day(s) Active Nicotinamide Active Mycophenolate Sodium 180 MG 2 tablets Orally Twice a day Active Social History Tobacco Use: Social History Observation Description Date Details (start date - stop date) Never Smoker NA - NA Tobacco Use/Smoking Question Answer Notes Are you a: nonsmoker Additional Findings: Tobacco Non-User Current no n-smoker Tobacco use other than smoking: Question Answer Notes Are you an other tobacco user? No Vital Signs Height 5ft 7in in 03/17/2024 Weight 168 lbs 03/17/2024 BMI 26.31 kg/m2 03/17/2024 Encounters Encounter Location Date Provider Diagnosis [facility] [address] [address] 03/17/2024 Erika Dumas Tinea unguium B35.1 ; Pain in right toe(s) M79.674 and Pain in left toe(s) M79.675 Assessments Encounter Date Diagnosis (ICD Code) Assessment Notes Treatment Notes Treatment Clinical Notes Section Notes 03/17/2024 Tinea unguium (ICD-10 - B35.1) 03/17/2024 Pain in right toe(s) (ICD-10 - M79.674) 03/17/2024 Pain in left toe(s) (ICD-10 - M79.675) Plan Of Treatment Next Appt Details Follow Up: 2 Months, Reason: Provider Name:Erika car, 10/24/2024 03:30:00 PM, [address] [place] [address], [phone], Procedure Notes * Category Sub-Category Detail Notes Debride Nail 6-10 Nail debridement Nail debridem ent performed extensively to reduce/remove overall nail length, girth, thickness, subungual debris, and necrotic tissue, by manual and electrical means through the use of a nail nipper and/or dremel, to more viable healthy nail plate or bed tissue 1-5. Silver nitrate used for any petechial bleeding as necessary. Patient chooses, no pharmaceutical tx (82899) Progress Notes * Jose GREEN ADOB:05/1955 (68 yo M)Acc No.[id number]:03/17/2024 Progress Note Patient:?Jose Green Provider:?Erika Dumas DPM :1955???Age:68 Y???Sex:Male Camacho e:03/17/2024 Address:[address] [place], [place] [phone] Pcp:Jeffry Gee MD Subjective: * Chief Complaints: * ???Painful nail(s) aggrevate d by shoes causing difficulty standing/walking * HPI: ???Painful Nails:?Pt States Last PCP Visit:?Date:?02/22/2024 * ROS:?General/Constitutional:?Nausea?denies.?Vomiting?denies.?Hunger Thirst?denies.?Loss appetite?denies.?Chills?denies.?Fatigue?denies.?Fever?denies.?Night Sweats?denies.?Unexplained weight loss?denies.?Unexplained weight gain?denies.?HEENTM:?Dentures?denies.?Dizziness?denies.?Glasses/contacts?denies.?Retinopathy?de nies.?Blurred/double vision?denies.?TMJ?denies.?Discharge/drainage?denies.?Implants?denies.?Sore throat?denies.?Dental implants?denies.?Hard of hearing ?denies.?Difficulty chewing/swallowing/speaking?denies.?Nose bleeds?denies.?Sore mouth?denies.?Respiratory:?On Oxygen?denies.?Pneumonia/pleurisy?denies.?Bronchitis?denies.?Emphysema?denies.?C oughing?denies.?Cough blood?denies.?Shortness of breath?denies.?Wheezing?denies.?Cardiovascular:?Pacemaker?denies.?MVP?denies.?WPW?denies.?CHF?denies.?Heart attack?denies.?Septal defect?denies.?Rapid beat?denies.?Chest pain ?denies.?Atrial Fib.?denies.?Murmur/Palpitations?denies.?Gastrointestinal:?Hemorrhoids?denies.?Stomach/Abdominal pain?denies.?Dark blood stool?denies.?Irritable bowel ?denies.?Constipation?denies.?Diarrhea?denies.?Hematology:?Swelling?admits.?Clots?denies.?Varicose Veins?denies.?Bruising?denies.?Bleeding problem?denies.?Genitourinary:?Blood urine?denies.?Frequent/Painfu/urination/bladder control?denies.?Kidney stones?denies.?Infection (UTI)?denies.?Nephropathy?denies.?sex trans dis (STD)?denies.?Prostate?denies.?Musculoskeletal:?Hammertoes?denies.?Bunions?denies.?Back Pain?denies.?Muscle Cramps/ Resting?denies.?Muscle cramps / walking?denies.?Generalized aches and pains?denies.?Weakness?denies.?Integ.:?Segovia?denies.?Scars?denies.?Corns/calluses?denies.?Ingrown nails?denies.?Painful nails?admits.?Open Sores?denies.?Rashes?denies.?Neurologic:?Difficulty sleeping?denies.?Brain disorder?denies.?Numbness?admits.?Balance trouble?denies.?Confusion?denies.?Fainting/blackouts?denies.?Tingling?admits.?Tr emors?denies.? * Medical History:? * Surgical History:?testicular , [...] Delayed Release 1 tablet Orally Twice a dayTamsulosin HCl 0.4 MG Capsule 1 capsule Orally Once a daySEROquel 100 MG Tablet 1 tablet at bedtime Orally Once a dayPantoprazole Sodium 40 MG Tablet Delayed Release 1 tablet Orally Once a dayNicotinamide Mycophenolate Sodium 180 MG Tablet Delayed Release 2 tablets Orally Twice a dayTacrolimus ER 1 MG Tablet Extended Release 24 Hour as directed Orally Allopurinol 100 MG Tablet 1 tablet Orally Once a dayLevothyroxine Sodium 100 MCG Tablet 1 tablet in the morning on an empty stomach Orally Once a dayTaking Depakote 250 MG Tablet Delayed Release 1 tablet Orally Twice a dayTaking Tamsulosin HCl 0.4 MG Capsule 1 capsule Orally Once a dayTaking SEROquel 100 MG Tablet 1 tablet at bedtime Orally Once a dayTaking Pantoprazole Sodium 40 MG Tablet Delayed Release 1 tablet Orally Once a dayTaking Nicotinamide Taking Mycophenolate Sodium 180 MG Tablet Delayed Release 2 tablets Orally Twice a dayTaking Tacrolimus ER 1 MG Tablet Extended Release 24 Hour as directed Orally Taking Allopurinol 100 MG Tablet 1 tablet Orally Once a dayTaking Levothyroxine Sodium 100 MCG Tablet 1 tablet in the morning on an empty stomach Orally Once a dayNot-Taking/PRNOmega 3 1000 MG Capsule 1 capsule Orally Once a daySpironolactone 25 MG Tablet 1 tablet Orally Iron (Ferrous Sulfate) 325 (65 Fe) MG Tablet 1 tablet Orally Twice a dayMedication List reviewed and reconciled with the patientNot-Taking/PRN Luck 3 1000 MG Capsule 1 capsule Orally Once a dayNot-Taking/PRN Spironolactone 25 MG Tablet 1 tablet Orally Not-Taking/PRN Iron (Ferrous Sulfate) 325 (65 Fe) MG Tablet 1 tablet Orally Twice a dayMedication List reviewed and reconciled with the patient * Allergies:?Seasonaleyes[Nick rgies Verified] Objective: * Vitals:?Ht: 5ft 7in, Wt:168, BMI:26.31, Shoe size: 9.5, Ht-cm: 170.18 cm, Wt-k.2 kg. * Examination: ???Nails: ?NAILS are:?Elongated, overgrown, dystrophic, lytic, greater than 3mm thick, discolored and friable with crumbly malodorous subungual debris, with pain on palpation , 1-5 B/L.? Assessment: * Assessment: 1.?Tinea unguium - B35.1?2.? Pain in right toe(s) - M79.674?3.?Pain in left toe(s) - M79.675? Plan: * Treatment: * Procedures:?Debride Nail 6-10:?Nail debridement?Nail debridement performed extensively to reduce/remove overall nail length, girth, thickness, subungual debris, and necrotic tissue, by manual and electrical means through the use of a nail nipper and/or dremel, to more viable healthy nail plate or bed tissue 1-5. Silver nitrate used for any petechial bleeding as necessary. Patient chooses, no pharmaceutical tx (27632).? * Procedure Codes:?61296 DEBRI DE NAIL, 6 OR MORE, Modifiers: XS * Follow Up:?2 Months * Images: * Sign off status: Completed true * Provider:?Erika Dumas, FRANCK Date:? Generated for Barbie rizvi/Sara/Khari on:?10/05/2024 10:01 AM EDT History and Physical Notes * HPI (History of Present Illness) Category Sub-Category Detail Notes Category Not es Painful Nails Pt States Last PCP Visit: Date:: 02/22/2024 Examination Category Sub-Category Detail Notes Category Not es Nails NAILS are: Elongated, overg rown, dystrophic, lytic, greater than 3mm thick, discolored and friable with crumbly malodorous subungual debris, with pain on palpation , 1-5 B/L
== END 2024-10-05 10:26 | disposition home or self-care (01) ==
LOC: HO.HSMS 09:25
PROVIDERS: PCP Family Medicine; Visit Provider Psychiatry & Neurology Neurology
DX: G21.11 Neuroleptic induced parkinsonism (principal); T43.505A Adverse effect of unspecified antipsychotics and neuroleptics, initial encounter
CPT/HCPCS: 99214; G2211

== ENCOUNTER → 2024-10-05 09:24 | Outpatient (BNVA) | payer MEDICARE, SELFPAY | PROVIDERS: PCP Family Medicine; Visit Provider Psychiatry & Neurology Neurology | DX: G21.11 Neuroleptic induced parkinsonism (principal); T43.505A Adverse effect of unspecified antipsychotics and neuroleptics, initial encounter; Z79.899 Other long term (current) drug therapy | CPT/HCPCS: 99212 ==

== ENCOUNTER 2025-04-09 09:09 | Outpatient (AMB) | payer MEDICARE, SELFPAY ==
[2025-04-09 09:14] VITALS: BP 142/70; PULSE 63; O2SAT 99; BMI 22.4
--- NOTE | 2025-04-09 09:14 | A.OFFVIS_ITS ---
Vital Signs 04/09/25 09:14 Height 5 ft 7 in Weight 143 lb 2 oz BMI 22.4 BP 142/70 H Blood Pressure Location Rt brachial Position Sitting Pulse 63 Pulse Source Pulse Oximeter Pulse Oximetry (%) 99 Oxygen Delivery Method Room Air Intake Visit Reasons: 6m follow up Intake Note: Follow up unspecified Parkinsonism, orthostatic hypotension Epic Application Coordinator Required: No Accompanied by: Self / Same As Patient Allergies haloperidol (From Haldol) Allergy (Verified 04/09/25 09:14) Unknown tizanidine Allergy (Verified 04/09/25 09:14) Unknown Medication List - Last Reconciled 04/09/25 by Isabela Myers MD acetaminophen 1,000 mg PO Q6H PRN allopurinol 100 mg PO DAILY carbidopa-levodopa 25-100 mg 1 tab PO TID clonazepam mg PO divalproex ER (Depakote ER) 250 mg PO BID finasteride 5 mg PO DAILY fludrocortisone 0.05 mg PO DAILY lactulose 15 - 30 mL PO BEDTIME PRN 30 days levothyroxine mcg PO midodrine mg PO mycophenolate sodium 360 mg PO BID pantoprazole 40 mg PO BID polyethylene glycol 3350 (Miralax) 17 grams PO DAILY tacrolimus XR (Envarsus XR) 2 mg PO DAILY tamsulosin 0.8 mg PO DAILY HPI Comments Details: 69y/o left handed male comes for follow up of parkinsonism. His is irritable and gets upset with him and everytime she does that his symptoms worsen .when he ignores her he is doing better. He had 2 falls related to stress. He started to do voice exercise like singing which is helping. He reports difficulty sleeping and some snoring, hypersomnia. He is on carbidopa/levodopa 1/2 tab tid and he thinks it is helping his tremors.He was started on fudrocortisone 0.1mg qam has helped his postural hy potension and dizziness He is eating less and has constipation . He is on miralax and is helping him. He is on midodrine 10 mg 3times a day . His seroquel at bedtime was stopped and now he is on depakote . he could not do the LAI scan due to kidney transplant. H/o from initial history-He started noticing tremors in his left hand about 6 mths ago . it was mild and intermittent initially but its more now. The tremors is mostly at rest. No difficulty with left hand coordination Handwriting is smaller No trouble with using utensils, eating, dressing. He also has lumbar spinal stenosis and had surgery 1 year ago . He has persistent back pain and is getting cortisone shots. He has trouble getting up form chair balance and also feels he shuffles. He feels his left foot is stuck No falls but had some near [place]. His voice is softer. He has mild memory issues He is a light sleeper. He has anxiety and takes clonazepam . He has constipation. 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 He has h/o Bipolar disorder and has been exposed to risperdal, haldol for few years and now is on quetiapine. [facility] Medical History (Updated 04/09/25 @ 09:39 by Isabela Myers MD) Hypersomnia Snoring Parkinsonism Parkinson's disease without dyskinesia Subacromial bursitis of left shoulder joint Hypothyroidism Hyperlipidemia History of testicular cancer Gout GERD (gastroesophageal reflux disease) CKD (chronic kidney disease), stage IV BPH (benign prostatic hyperplasia) Bipolar disorder Surgical History Kidney transplanted Previous back surgery Living unrelated donor renal transplant History of orchiectomy H/O esophagogastroduodenoscopy H/O colonoscopy Family History Father History of heart attack Mother Suicide Sister Bipolar 2 disorder Social History Alcohol intake: never Patient Tobacco Use Status: Never used Tobacco Physical Exam Vital Signs: Last Vital Signs Pulse 63 04/09/25 09:14 BP 142/70 H 04/09/25 09:14 Pulse Ox 99 04/09/25 09:14 Oxygen Delivery Method Room Air 04/09/25 09:14 BMI result Body Mass Index 22.4 Const General: cooperative, healthy appearing and no acute distress Nutritional Appearance: average body habitus Orientation/consciousness: patient oriented x3 HEENT Head: Yes normal to inspection Neck Other: mild antecollis and restricted range of motion Neuro Other: normal blink and facial expression No lower lip tremors, tongue tremors , slow tongue movements Voice- good left hand rest remors FineFinger movements - normal Alternating hand movements - normal Hand movements -normal Foot taps- decreased normal No cog wheel rigidity gait - mild slowness and decreased arm swing L>R General: patient oriented x3 and no focal motor deficits Cranial nerves: Yes CN's II-XII intact bilaterally, Yes Bilaterally intact EOM present, Yes Normal facial strength present, Yes Midline tongue present and Yes Ability to bilaterally elevate shoulders present Cognition (Neuro): normal cognition Motor exam (neuro): 5/5 motor strength present throughout Assessment & Plan Assessment & Plan (1) Parkinsonism: Code(s): G20.C - Parkinsonism, unspecified Category: Medical Qualifiers: Parkinsonism type: secondary Parkinsonism Secondary Parkinsonism type: neuroleptic-induced Qualified Code(s): G21.11 - Neuroleptic induced parkinsonism; T43.505A - Adverse effect of unspecified antipsychotics and neuroleptics, initial encounter (2) Snoring: Code(s): R06.83 - Snoring Category: Medical (3) Hypersomnia: Code(s): G47.10 - Hypersomnia, unspecified Category: Medical Plan Increase fluid intake continue carbidopa/levodopa 25/100 1 /2 tab tid Midodrine 15 mg tid fludrocortisone 0.2mg qam LAI scan to assess if it is a neuroleptic related parkinsonism- but cancelled due to his kidney disease Home sleep test to r/o sleep apnea Orders: Orders RT home sleep study Today G47.10 - Hypersomnia, unspecified, R06.83 - Snoring Medications: Changed From midodrine PO To midodrine mg PO From fludrocortisone 0.05 mg PO DAILY To fludrocortisone 2 tabs qam Coding Level of Care Code Est Pt Level 4 (37228) Complex EM visit Add On G2211 Diagnoses Neuroleptic-induced parkinsonism G21.11; T43.505A Parkinsonism type: secondary Parkinsonism Secondary Parkinsonism type: neuroleptic-induced Snoring R06.83 Hypersomnia G47.10
== END 2025-04-09 09:51 | disposition home or self-care (01) ==
PROVIDERS: PCP Family Medicine; Visit Provider Psychiatry & Neurology Neurology
DX: G21.11 Neuroleptic induced parkinsonism (principal); T43.505A Adverse effect of unspecified antipsychotics and neuroleptics, initial encounter; R06.83 Snoring; G47.10 Hypersomnia, unspecified
CPT/HCPCS: 99214; G2211

== ENCOUNTER → 2025-04-09 09:09 | Outpatient (BNVA) | payer MEDICARE, SELFPAY | PROVIDERS: PCP Family Medicine; Visit Provider Psychiatry & Neurology Neurology | DX: G20.A1 Parkinson's disease without dyskinesia, without mention of fluctuations (principal); N18.4 Chronic kidney disease, stage 4 (severe); G21.11 Neuroleptic induced parkinsonism; T43.505A Adverse effect of unspecified antipsychotics and neuroleptics, initial encounter | CPT/HCPCS: 99212 ==

== ENCOUNTER → 2025-05-09 12:42 | Outpatient (REF) | payer OTHER, MEDICARE, SELFPAY | LOC: HO.SL 12:42 | PROVIDERS: PCP Family Medicine; Visit Provider Psychiatry & Neurology Neurology | DX: G47.10 Hypersomnia, unspecified (principal); R06.83 Snoring | CPT/HCPCS: 95806 ==

== ENCOUNTER → 2025-05-09 13:02 | Outpatient (BNV) | payer OTHER, MEDICARE, SELFPAY | PROVIDERS: PCP Family Medicine; Visit Provider Psychiatry & Neurology Neurology | DX: G47.10 Hypersomnia, unspecified (principal); R06.83 Snoring | CPT/HCPCS: 95806 ==